=== PATIENT | female | born 1935 | race Caucasian/White ===

== ENCOUNTER → 2016-10-19 | Outpatient (CLI) | payer OTHER, MEDICARE | LOC: FIMAGING 10:28 | PROVIDERS: ATTEND Internal Medicine Infectious Disease | DX: A31.0 Pulmonary mycobacterial infection (principal) ==

== ENCOUNTER → 2016-11-12 | Outpatient (CLI) | payer OTHER, MEDICARE | LOC: BRMIMAGING 13:38 | PROVIDERS: ATTEND Internal Medicine | DX: Z13.820 Encounter for screening for osteoporosis (principal); M81.0 Age-related osteoporosis without current pathological fracture; M54.5 Low back pain; Z78.0 Asymptomatic menopausal state; Z82.62 Family history of osteoporosis ==

== ENCOUNTER 2016-12-01 09:54 | Day surgery (SDC) | payer OTHER, MEDICARE ==
[2016-12-01] MEDS ORDERED: NS 500 ML IV SCH (10:45)
[2016-12-01] MEDS ORDERED: LIDOCAINE 2% JELLY 5 ML TUBE ONE (11:04)
[2016-12-01] MEDS ORDERED: fentaNYL 100 MCG/2 ML INJ ONE (11:05)
[2016-12-01] MEDS ORDERED: MIDAZOLAM 2 MG/2 ML VIAL ONE ×2 (11:05)
[2016-12-01] MEDS ORDERED: LIDOCAINE 1% 30 ML SDV ONE (11:05)
[2016-12-01] MEDS ORDERED: ALBUTEROL 3 ML DEYVIAL ONE (11:08)
[2016-12-01] MEDS ORDERED: LIDOCAINE HCL 4% TOPICAL SOLN 50ML ONE (11:14)
--- NOTE | 2016-12-01 16:52 | GPN ---
[f rep st] PROCEDURE NOTE DATE OF PROCEDURE: 12/01/2016 PROCEDURE: Flexible fiberoptic bronchoscopy. 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 PROCEDURE NOTE: The risks and benefits of the procedure were explained to the patient, who agreed t o proceed. The entire procedure was performed in a negative pressure room with the patient under bl ood pressure, EKG, and oximetry monitoring. It was my assessment that there was no significant risk of airborne infection from this procedure. The patient's oropharynx was anesthetized with topical Hurricaine spray, and a bite block was then placed between her teeth. The bronchoscope was advanced through the bite block into the vocal cords, which moved normally. 1% lidocaine was used topically on the airways for anesthesia. The bronchoscope was advanced through the vocal cords into the main trachea, which was somewhat tortuous, but otherwise normal in appearance. I proceeded directly to the right upper lobe, where a wedge position was obtained; was obtained in the anterior segment. La vage with approximately 80 cc of saline was performed, with return of cloudy fluid. The trap was re moved from the bronchoscope, and the specimen was sent for cultures and stains. The bronchoscope wa s then removed from the wedge position, and I examined all the airways bilaterally. I suctioned lisseth e thick, mucopurulent secretions, primarily from the right and left lower lobe, with a small-moderat e volume. All airways were clear of secretions at the end of the procedure. There were no endobron chial lesions. The patient received 2 mg of Versed and 100 mcg of fentanyl intravenously for analge chapo and sedation. There were no complications apparent at the end of the procedure. /[id number]/MODL
== END 2016-12-01 13:42 | disposition home or self-care (01) ==
LOC: FSGY 09:54
PROVIDERS: ATTEND Internal Medicine Critical Care Medicine
DX: J47.9 Bronchiectasis, uncomplicated (principal)
CPT/HCPCS: J0171; J2250; J3010

== ENCOUNTER 2016-12-01 19:03 | Emergency (ER) | payer OTHER, MEDICARE ==
--- NOTE | 2016-12-01 19:13 | EDPHY ---
H & P Time Seen by Provider: 12/01/16 19:13 HPI/ROS: CHIEF COMPLAINT: Coughing and worsening shortness of breath HISTORY OF PRESENT ILLNESS: This 81-year-old woman is being treated for a non tuberculosis mycobacterial infection with azithromycin and ethambutol and rifampin. She was feeling worse over the past week and so her online tutor Dr. Harman Gong did a bronchoscopy today at around 11:00 a.m.. She was sent home around 2:30 p.m.. Since she got home she has been coughing and feeling worse and having difficulty breathing and unable to get comfortable. Not associated with fever or chills or sputum production or chest pain. Symptoms severe at home, and brought in by ambulance. Now mild. REVIEW OF SYSTEMS: Eye: no change in vision ENT: no sore throat, hard of hearing at baseline with cochlear implants Cardiac: no chest pain or syncope Pulmonary: HPI Abdomen: no vomiting, diarrhea, abdominal pain Musculoskeletal: no back pain Skin: no rash Neuro: no headache Constitutional: no fever : no urinary symptoms A comprehensive 10 point review of systems is otherwise negative aside from elements mentioned in the history of present illness. PAST MEDICAL HISTORY: Cochlear implants, glaucoma, bronchiectasis with non tuberculosis mycobacterial infection. Social history: Nonsmoker, lives alone General Appearance: Alert and conversant, cooperative. Eyes: No scleral icterus. ENT, Mouth: Normal mucous membranes. Respiratory: Bilateral rhonchi but speaks in full sentences. Respiratory rate around mid 20s on my exam. Cardiovascular: Regular rate and rhythm. Gastrointestinal: Abdomen is soft and non tender. Neurological: Alert and oriented x3. Normally conversant. Face symmetric, normal movement and sensation in all extremities. Skin: Warm and dry, no rashes. Musculoskeletal: No peripheral edema and no joint swelling. Psychiatric: Not agitated. Emergency Department course/MDM: Discussed case in detail with Beltran at 1929. He recommends that if her saturation is at baseline that she can be treated with bronchodilators and antitussives and discharged as long as the patient is comfortable with that. X-ray reviewed with radiologist maybe a little bit worse in the right upper lung. No pneumothorax or pleural effusion. Patient received albuterol nebulizer and cough medication. She feels better. She feels safe and able to go home at this time. Think that is reasonable as this is the recommendation of her online tutor who knows her well and saw her earlier today. Smoking Status: Never smoked Constitutional: Initial Vital Signs Temperature (C) 36.4 C 12/01/16 19:15 Heart Rate 81 12/01/16 19:15 Respiratory Rate 32 H 12/01/16 19:15 Blood Pressure 154/81 H 12/01/16 19:15 O2 Sat (%) 96 12/01/16 19:15 O2 Delivery Mode Nasal Cannula O2 (L/minute) 3 Allergies/Adverse Reactions: No Known Allergies Allergy (Verified 12/01/16 19:44) Home Medications: Medication Instructions Recorded ASPIRIN 11/23/16 AZITHROMYCIN 11/23/16 CALCIUM 11/23/16 Ethambutol HCl 11/23/16 IRON 11/23/16 MAGNESIUM 11/23/16 Potassium 11/23/16 Rifampin 11/23/16 Timolol 11/23/16 buPROPion SR 11/23/16 Medical Decision Making Differential Diagnosis: Differential considered including but not limited to bronchiectasis, bronchospasm, pneumothorax, pulmonary embolism, aspiration. Consult/Admit Bed Type: [place] [id number] for Minor - Data Points Laboratory Results: Laboratory Results 12/01/16 19:10 12/01/16 19:10 12/01/16 12/01/16 19:10 19:10 WBC 15.71 10^3/uL H 10^3/uL (3.80-9.50) RBC 4.47 10^6/uL 10^6/uL (4.18-5.33) Hgb 14.3 g/dL g/dL (12.6-16.3) Hct 41.4 % % (38.0-47.0) MCV 92.6 fL fL (81.5-99.8) MCH 32.0 pg pg (27.9-34.1) MCHC 34.5 g/dL g/dL (32.4-36.7) RDW 14.0 % % (11.5-15.2) Plt Count 224 10^3/uL 10^3/uL (150-400) MPV 11.3 fL fL (8.7-11.7) Neut % (Auto) 89.3 % H % (39.3-74.2) Lymph % (Auto) 4.6 % L % (15.0-45.0) Sequoyah % (Auto) 4.6 % % (4.5-13.0) Eos % (Auto) 0.7 % % (0.6-7.6) Baso % (Auto) 0.4 % % (0.3-1.7) Nucleat RBC Rel Count 0.0 % % (0.0-0.2) Absolute Neuts (auto) 14.02 10^3/uL H 10^3/uL (1.70-6.50) Absolute Lymphs (auto) 0.72 10^3/uL L 10^3/uL (1.00-3.00) Absolute Monos (auto) 0.73 10^3/uL 10^3/uL (0.30-0.80) Absolute Eos (auto) 0.11 10^3/uL 10^3/uL (0.03-0.40) Absolute Basos (auto) 0.06 10^3/uL 10^3/uL (0.02-0.10) Absolute Nucleated RBC 0.00 10^3/uL 10^3/uL (0-0.01) Immature Gran % 0.4 % % (0.0-1.1) Immature Gran # 0.07 10^3/uL 10^3/uL (0.00-0.10) Sodium 137 mEq/L mEq/L (134-144) Potassium 3.8 mEq/L mEq/L (3.5-5.2) Chloride 100 mEq/L mEq/L (97-110) Carbon Dioxide 26 mEq/l mEq/l (22-31) Anion Gap 11 mEq/L mEq/L (8-16) BUN 13 mg/dL mg/dL (7-23) Creatinine 0.7 mg/dL mg/dL (0.6-1.0) Estimated GFR > 60 Glucose 136 mg/dL H mg/dL (70-100) Calcium 9.1 mg/dL mg/dL (8.5-10.4) Medications Given: Discontinued Medications Albuterol/Ipratropium (Duoneb) 3 ml IH EDNOW ONE Stop: 12/01/16 19:29 Last Admin: 12/01/16 20:02 Dose: 3 ml Departure - Departure Disposition: Home, Routine, Self-Care Clinical Impression: Bronchiectasis Qualifiers: Bronchiectasis type: uncomplicated Qualified Code(s): J47.9 - Bronchiectasis, uncomplicated Condition: Good Instructions: Bronchiectasis (ED) Referrals: Patient,NotPresent [Unknown] - As per Instructions Harman Gong MD [Medical Doctor] - As per Instructions
[2016-12-01] MEDS ORDERED: IPRATROPIUM/ALBUTEROL 3 ML DEYVIAL IH ONE (19:28)
[2016-12-01 19:39] LABS: % IMMATURE GRANULYOCYTES 0.4 % (0.0-1.1); ABSOLUTE IMMATURE GRANULOCYTES 0.07 10^3/uL (0.00-0.10); ADD DIFF? NO; ADD MORPH? NO; ADD SCAN? NO; ATYPICAL LYMPHOCYTE FLAG 0 (0-99); FRAGMENT RBC FLAG 0 (0-99); HEMATOCRIT 41.4 % (38.0-47.0); HEMOGLOBIN 14.3 g/dL (12.6-16.3); LEFT SHIFT FLG 0 (0-99); LIPEMIA HEMOLYSIS FLAG 90 (0-99); MEAN CELL HEMOGLOBIN CONCENTR. 34.5 g/dL (32.4-36.7); MEAN CELL VOLUME 92.6 fL (81.5-99.8); MEAN PLATELET VOLUME 11.3 fL (8.7-11.7); PLATELET CLUMPS FLAG 0 (0-99); PLATELET COUNT 224 10^3/uL (150-400); RED BLOOD CELL COUNT 4.47 10^6/uL (4.18-5.33)
[2016-12-01 19:45] LABS: ANION GAP 11 mEq/L (8-16); CALCIUM 9.1 mg/dL (8.5-10.4); CARBON DIOXIDE 26 mEq/l (22-31); CHLORIDE 100 mEq/L (97-110); CREATININE 0.7 mg/dL (0.6-1.0); GLOMERULAR FILTRATION RATE > 60; GLUCOSE 136 mg/dL (70-100); POTASSIUM 3.8 mEq/L (3.5-5.2); SODIUM 137 mEq/L (134-144)
[2016-12-01 21:13] VITALS: BP 140/83; PULSE 86; RESP 16; TEMP 97.7; O2SAT 95
== END 2016-12-01 22:40 | disposition home or self-care (01) ==
LOC: EDUNIT# → EDBD
DX: J47.9 Bronchiectasis, uncomplicated (principal)

== ENCOUNTER 2016-12-03 17:04 | Inpatient (IN) | payer OTHER, MEDICARE ==
[2016-12-03] MEDS ORDERED: CEFEPIME HCL 2 GM in D5W 100 ML IV ONE (17:19)
--- NOTE | 2016-12-03 17:20 | EDPHY ---
H & P Stated Complaint: sent for admission/has pseudomonas/needs abx Time Seen by Provider: 12/03/16 17:12 HPI/ROS: CHIEF COMPLAINT: Pneumonia HISTORY OF PRESENT ILLNESS: The patient is an 81-year-old female sent in by the Infectious Disease service Dr. Kaufman. 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 Over the last week she has had increased cough with shortness of breath. She had a bronchoscopy 2 days ago by her sales agent Dr. Gong. She was started on some type of cephalosporin but cultures returned today positive for Pseudomonas. Dr. Kaufman instructed her to come here to be admitted and called me and requested we start her on cefepime 2 g q.12 hours. Patient is tachypneic but not febrile. She was seen here in the emergency department 2 days ago after bronchoscopy and felt better with bronchodilators. Dr. Gong was consulted and the patient was discharged home. REVIEW OF SYSTEMS: Constitutional: denies: chills, fever, recent illness, recent injury EENTM: denies: blurred vision, double vision, nose congestion Respiratory: See HPI Cardiac: denies: chest pain, irregular heart rate, lightheadedness, palpitations Gastrointestinal/Abdominal: denies: abdominal pain, diarrhea, nausea, vomiting, blood streaked stools Genitourinary: denies: dysuria, frequency, hematuria, pain Musculoskeletal: denies: joint pain, muscle pain Skin: denies: lesions, rash, jaundice, bruising Neurological: denies: headache, numbness, paresthesia, tingling, dizziness, weakness Hematologic/Lymphatic: denies: blood clots, easy bleeding, easy bruising Immunologic/allergic: denies: HIV/AIDS, transplant EXAM: GENERAL: Well-appearing, well-nourished and in no acute distress. HEAD: Atraumatic, normocephalic. EYES: Pupils equal round and reactive to light, extraocular movements intact, sclera anicteric, conjunctiva are normal. ENT: TMs normal, nares patent, oropharynx clear without exudates. Moist mucous membranes. NECK: Normal range of motion, supple without lymphadenopathy or JVD. LUNGS: Coarse breath sounds bilaterally HEART: Regular rate and rhythm without murmurs, rubs or gallops. ABDOMEN: Soft, nontender, normoactive bowel sounds. No guarding, no rebound. No masses appreciated. BACK: No CVA tenderness, no spinal tenderness, step-offs or deformities EXTREMITIES: Normal range of motion, no pitting or edema. No clubbing or cyanosis. NEUROLOGICAL: Cranial nerves II through XII grossly intact. Normal speech, normal gait. 5/5 strength, normal movement in all extremities, normal sensation PSYCH: Normal mood, normal affect. SKIN: Warm, dry, normal turgor, no visible rashes or lesions. Source: Patient Exam Limitations: No limitations - Personal History Current Tetanus/Diphtheria Vaccine: Yes Tetanus Vaccine Date: 2006 - Medical/Surgical History Hx Asthma: No Hx Chronic Respiratory Disease: Yes Hx Diabetes: No Hx Cardiac Disease: No Hx Renal Disease: No Hx Cirrhosis: No Hx Alcoholism: No Hx HIV/AIDS: No Hx Splenectomy or Spleen Trauma: No Other PMH: cochlear implants, glaucoma, IBS, non-TB mycobacterium intracellular pneumonia - Family History Significant Family History: No pertinent family hx - Social History Smoking Status: Never smoked Alcohol Use: None Drug Use: None Constitutional: Initial Vital Signs Temperature (C) 36.4 C 12/03/16 17:08 Heart Rate 90 12/03/16 17:08 Respiratory Rate 27 H 12/03/16 17:08 Blood Pressure 117/85 H 12/03/16 17:08 O2 Sat (%) 92 12/03/16 17:08 O2 Delivery Mode Room Air Allergies/Adverse Reactions: No Known Allergies Allergy (Verified 12/03/16 17:06) Home Medications: Medication Instructions Recorded Aspirin [Aspirin 81mg (*)] 81 mg PO DAILY 12/03/16 Azithromycin [Azithromycin] 250 mg PO DAILY 12/03/16 Bupropion HCl [Bupropion HCl Sr] 200 mg PO DAILY 12/03/16 Calcium [HI-ADDIE] 1,000 mg PO DAILY 12/03/16 Cholecalciferol Vit D3 [Vitamin D3 1,000 units PO DAILY 12/03/16 (*)] Ethambutol HCl [Myambutol 400 MG 800 mg PO DAILY 12/03/16 (*)] Herbals/Supplements -Info Only 1 ea PO DAILY 12/03/16 Magnesium Oxide [Magnesium Oxide 800 mg PO DAILY 12/03/16 400 mg (*)] PREDNISONE [PREDNISONE] 20 mg PO DAILY 12/03/16 RIFAMPIN [RIFAMPIN] 600 mg PO HS 12/03/16 Timolol 0.25% [TIMOPTIC 0.25% (*)] 1 drops EACHEYE BID 12/03/16 Valacyclovir HCl [Valacyclovir] 500 mg PO BID PRN 12/03/16 Vitamin B Complex [Super B-50 1 each PO DAILY 12/03/16 Complex] Medical Decision Making - Diagnostics Imaging: X-ray: chest x-ray was obtained. I viewed the images myself on the PACS system. My interpretation of the images is: Similar to yesterday with diffuse airspace disease. The radiologist interpretation is pending. ED Course/Re-evaluation: 5:30 p.m. I discussed the case with Dr. Angeles Guaman who will admit to the medical service. Sepsis labs pending. Patient does meet criteria for sepsis but not severe sepsis. She has been treated appropriate antibiotics. Differential Diagnosis: Partial list of the Differential diagnosis considered include but were not limited to; pneumonia, sepsis chronic lung disease, pulmonary hypertension and although unlikely based on the history and physical exam, I also considered endocarditis, severe sepsis. Critical Care Time: Critical care time spent by me, Dr. Lewis exclusive with this patient was 35 minutes, exclusive of the PA time exclusive of procedures. The organ system that was at risk was pulmonary and I gave antibiotics to prevent worsening of the patient's condition - Data Points Medications Given: Discontinued Medications Cefepime HCl 2 gm/ Dextrose 100 mls @ 200 mls/hr IV EDNOW ONE PRN Reason: Protocol Stop: 12/03/16 17:48 Last Admin: 12/03/16 18:01 Dose: 100 mls Departure - Departure Disposition: [facility] Inpatient Acute Clinical Impression: Pneumonia Qualifiers: Pneumonia type: due to Pseudomonas Laterality: unspecified laterality Lung location: unspecified part of lung Qualified Code(s): J15.1 - Pneumonia due to Pseudomonas Sepsis Qualifiers: Sepsis type: Pseudomonas Qualified Code(s): A41.52 - Sepsis due to Pseudomonas Condition: Fair
[2016-12-03 17:58] LABS: INR 1.04 (0.83-1.16); PROTIME(PATIENT) 13.5 SEC (12.0-15.0)
[2016-12-03 17:59] LABS: APTT 25.5 SEC (23.0-38.0)
[2016-12-03 18:12] LABS: % IMMATURE GRANULYOCYTES 0.5 % (0.0-1.1); ABSOLUTE IMMATURE GRANULOCYTES 0.06 10^3/uL (0.00-0.10); ADD DIFF? NO; ADD MORPH? NO; ADD SCAN? NO; ATYPICAL LYMPHOCYTE FLAG 10 (0-99); FRAGMENT RBC FLAG 0 (0-99); HEMATOCRIT 37.5 % (38.0-47.0); LEFT SHIFT FLG 0 (0-99); LIPEMIA HEMOLYSIS FLAG 90 (0-99); MEAN CELL HEMOGLOBIN 32.1 pg (27.9-34.1); MEAN CELL HEMOGLOBIN CONCENTR. 34.7 g/dL (32.4-36.7); MEAN CELL VOLUME 92.6 fL (81.5-99.8); MEAN PLATELET VOLUME 11.3 fL (8.7-11.7); PLATELET CLUMPS FLAG 10 (0-99); PLATELET COUNT 223 10^3/uL (150-400); RED BLOOD CELL COUNT 4.05 10^6/uL (4.18-5.33); RED CELL DISTRIBUTION WIDTH 13.8 % (11.5-15.2)
[2016-12-03 18:25] LABS: ANION GAP 8 mEq/L (8-16); BILIRUBIN,TOTAL 0.9 mg/dL (0.1-1.4); CALCIUM 8.8 mg/dL (8.5-10.4); CARBON DIOXIDE 26 mEq/l (22-31); CHLORIDE 100 mEq/L (97-110); CREATININE 0.7 mg/dL (0.6-1.0); GLOMERULAR FILTRATION RATE > 60; GLUCOSE 105 mg/dL (70-100); POTASSIUM 3.9 mEq/L (3.5-5.2); SODIUM 134 mEq/L (134-144)
[2016-12-03] MEDS ORDERED: ONDANSETRON 4 MG/2 ML VIAL IVP PRN (19:11)
[2016-12-03] MEDS ORDERED: ALBUTEROL 3 ML DEYVIAL IH PRN (19:11)
[2016-12-03] MEDS ORDERED: ONDANSETRON DISINTEGRATING 4 MG TAB PO PRN (19:11)
[2016-12-03] MEDS ORDERED: ACETAMINOPHEN 325 MG TAB PO PRN (19:11)
[2016-12-03] MEDS ORDERED: valACYclovir 500 MG TAB PO PRN (19:14)
[2016-12-03] MEDS ORDERED: MAGNESIUM OXIDE 400 MG TAB PO SCH (19:29)
[2016-12-03] MEDS ORDERED: LACTULOSE 20 GM/30 ML UDCUP PO PRN (19:32)
[2016-12-03] MEDS ORDERED: MAGNESIUM HYDROXIDE 30 ML UDCUP PO PRN (19:32)
[2016-12-03] MEDS ORDERED: POLYETHYLENE GLYCOL 3350 17 GM PKT PO PRN (19:32)
[2016-12-03] MEDS ORDERED: BISACODYL 10 MG SUPP PR PRN (19:32)
[2016-12-03] MEDS: IPRATROPIUM/ALBUTEROL 3 ML DEYVIAL IH SCH (20:15)
[2016-12-03] MEDS: ERYTHROMYCIN 0.5% 1 GM OPHT.OINT RTEYE SCH (20:28)
[2016-12-03] MEDS: RIFAMPIN 300 MG CAP PO SCH (20:30)
[2016-12-03] MEDS: SENNOSIDES/DOCUSATE SODIUM TAB PO SCH (20:31)
[2016-12-03] MEDS: ETHAMBUTOL HCL 400 MG TAB PO SCH (20:31)
[2016-12-03] MEDS ORDERED: CEPACOL LOZENGE PO PRN (20:44)
[2016-12-03] MEDS ORDERED: TIMOLOL 0.25% 5 ML OPHT.BTL EACHEYE SCH (21:00)
--- NOTE | 2016-12-03 21:22 | GHP ---
[f rep st] HISTORY AND PHYSICAL DATE OF ADMISSION: 12/03/2016 CHIEF COMPLAINT: Cough and shortness of breath. HISTORY OF PRESENT ILLNESS: This patient is an 81-year-old female with a history of Mycobacterium lung infection, glaucoma, and cochlear implants, who presents to the emergency department at the direction of in her infectious disease specialist due to Pseudomonas in a recent sputum culture in the setting of worsening cough and shortness of breath. She is followed by Dr. Gong, pulmonology, who performed a bronchoscopy 2 days ago due to her worsening symptoms over the past 6 weeks. She has previously been treated by Infectious Disease for her mycobacterium infection with azithromycin, rifampin, and ethambutol. Her cough is wet and productive, and she is more short of breath than usual. A bronchial washing culture from her bronchoscopy on December 01 grew Pseudomonas, and she was directed to the emergency department for admission for further treatment. At this time, the patient denies chest pain, abdominal pain , nausea, or vomiting. She reports a history of constipation in the setting of irritable bowel syndrome and feels her magnesium supplements help treat this. She is currently afebrile and appears comfortable. She is admitted to the hospital for further management. PAST MEDICAL AND SURGICAL HISTORY: 1. History of Mycobacterium avium complex. 2. Bronchiectasis, followed by Dr. Lawrence Gong. 3. Bilateral cochlear implants. 4. Irritable bowel syndrome. 5. Glaucoma. MEDICATIONS: Please see [facility] for complete updated outpatient medication list. ALLERGIES: No known drug allergies. FAMILY HISTORY: Reviewed and noncontributory. SOCIAL HISTORY: The patient lives independently. She is a nonsmoker. She denies alcohol use. REVIEW OF SYSTEMS: A 10-point review of systems is performed is negative, except as per HPI. OBJECTIVE: VITAL SIGNS: Temperature is 36.4, blood pressure 117/85, heart rate 90, respiratory rate ranged from 16 to 28, she is currently 93% on 2 L of oxygen by nasal cannula. GENERAL: The patient is awake, alert, oriented, in no acute distress. HEENT: She has bilateral cochlear implants. Head is otherwise atraumatic and normocephalic. Pupils equal, round, and reactive to light. Extraocular muscles are intact. Oropharynx is clear. Mucous membranes are moist. NECK: Supple. There is no JVD. HEART: Regular rate and rhythm. LUNGS: Relatively clear to auscultation bilaterally. ABDOMEN: Soft, nondistended, nontender. Normoactive bowel sounds. EXTREMITIES: Without cyanosis, clubbing, or edema. Warm and well perfused. NEUROLOGIC: Grossly nonfocal. LABORATORY DATA: CBC reveals a white blood cell count of 12.9, down from 15.7 two days ago. She has 78% neutrophils. INR is 1. Lactic acid is normal at 0.8. Basic metabolic panel reveals normal electrolytes, normal kidney function with a creatinine of 0.7, blood sugar is 105. Chest x-ray shows diffuse bilateral interstitial disease without new focal consolidation, pleural effusion or evidence of heart failure. Chest x-ray is personally reviewed by myself and is relatively unchanged compared to prior film 2 days ago, which showed diffuse reticular nodular opacities with possible slight progression in the right upper lobe. ASSESSMENT AND PLAN: This patient is an 81-year-old female with a history of bronchiectasis who has recently been treated for Mycobacterium avium complex infection and presents to the hospital 2 days after bronchoscopy with a positive culture for Pseudomonas and worsening symptoms, including productive cough and shortness of breath. 1. Acute hypoxemic respiratory failure in the setting of bronchiectasis, Mycobacterium avium complex, and a culture positive for Pseudomonas. She is afebrile on presentation, but based on her tachypnea and leukocytosis, she meets criteria for sepsis. She does not have severe sepsis, however, without hypotension and a normal lactate. I discussed the case with Infectious Disease. The patient will be admitted and treated with IV cefepime. She will be continued on her azithromycin, rifampin, and ethambutol. I am going to repeat a noncontrast chest CT, given the possible slight progression in the right upper lobe of her chest film compared to October 2016 at the time of her last CT. She will receive supplemental oxygen and nebulizers. I do not hear any significant wheezing and will defer steroids for the time being. Infectious Disease consult is requested. Would also consider Pulmonary consult tomorrow. 2. Irritable bowel syndrome, constipation predominant. The patient will be continued on her outpatient medications and will add a bowel protocol. 3. Deep venous thrombosis prophylaxis, Lovenox. DISPOSITION: The patient will be admitted to inpatient status, as she will likely require greater than 48 hours' hospitalization for ongoing management of her [id number] pulmonary infectious process. She currently lives at [facility], and the plan will be to discharge her to SNF at [facility]. Apparently they have a bed available for her on Tuesday. Case Management consult is requested to assist with discharge planning. /[id number]/MODL MTDD
[2016-12-04] MEDS: ERYTHROMYCIN 0.5% 1 GM OPHT.OINT RTEYE SCH ×4 (02:34→17:41)
[2016-12-04] MEDS: IPRATROPIUM/ALBUTEROL 3 ML DEYVIAL IH SCH ×4 (05:04→19:46)
[2016-12-04 05:13] LABS: % IMMATURE GRANULYOCYTES 0.6 % (0.0-1.1); ABSOLUTE IMMATURE GRANULOCYTES 0.06 10^3/uL (0.00-0.10); ADD DIFF? NO; ADD MORPH? NO; ADD SCAN? NO; ATYPICAL LYMPHOCYTE FLAG 10 (0-99); FRAGMENT RBC FLAG 0 (0-99); HEMATOCRIT 35.4 % (38.0-47.0); HEMOGLOBIN 12.5 g/dL (12.6-16.3); LEFT SHIFT FLG 0 (0-99); LIPEMIA HEMOLYSIS FLAG 90 (0-99); MEAN CELL HEMOGLOBIN 32.8 pg (27.9-34.1); MEAN CELL HEMOGLOBIN CONCENTR. 35.3 g/dL (32.4-36.7); MEAN CELL VOLUME 92.9 fL (81.5-99.8); MEAN PLATELET VOLUME 11.2 fL (8.7-11.7); PLATELET CLUMPS FLAG 0 (0-99); PLATELET COUNT 204 10^3/uL (150-400); RED BLOOD CELL COUNT 3.81 10^6/uL (4.18-5.33); RED CELL DISTRIBUTION WIDTH 13.6 % (11.5-15.2)
[2016-12-04] MEDS: CEFEPIME HCL 2 GM in D5W 100 ML IV SCH ×2 (06:09→17:31)
[2016-12-04] MEDS: TIMOLOL 0.25% 5 ML OPHT.BTL EACHEYE SCH ×2 (06:18→19:35)
[2016-12-04 06:25] LABS: COLOR AMBER; LEUKOCYTE ESTERASE,URINE NEGATIVE (NEGATIVE); NITRITE,URINE NEGATIVE (NEGATIVE)
[2016-12-04] MEDS: ENOXAPARIN 40 MG/0.4 ML SYR SC SCH (08:05)
[2016-12-04] MEDS: AZITHROMYCIN 250 MG TAB PO SCH (08:14)
[2016-12-04] MEDS: CHOLECALCIFEROL VIT D3 1,000 UNITS TAB PO SCH (08:15)
[2016-12-04] MEDS: ASPIRIN 81 MG CHEWABLE TAB PO SCH (08:15)
[2016-12-04] MEDS: ETHAMBUTOL HCL 400 MG TAB PO SCH (08:16)
[2016-12-04] MEDS: CALCIUM CARBONATE 500 MG TAB PO SCH (08:20)
[2016-12-04] MEDS: SENNOSIDES/DOCUSATE SODIUM TAB PO SCH ×2 (08:20→19:38)
[2016-12-04] MEDS ORDERED: MAGNESIUM OXIDE 400 MG TAB PO SCH (09:00)
[2016-12-04] MEDS ORDERED: buPROPion SR 100 MG TAB PO SCH (09:00)
[2016-12-04] MEDS ORDERED: ETHAMBUTOL HCL 400 MG TAB PO SCH (09:00)
[2016-12-04] MEDS ORDERED: NON-FORMULARY NEW DRUG (Calcium [Hi-Cal] 1,000 MG) PO SCH (09:00)
--- NOTE | 2016-12-04 13:12 | PCMIDPN ---
Assessment/Plan: Assessment/Plan: * Pneumonia: CT of chest shows new infiltrates when compared to her CT in October. Suggest new foci of pneumonia and time course less suggestive of progressive MAC given only 2 month interval. BAL cultures have shown Pseudomonas which may be etiology for pneumonia. Will continue therapy with cefepime 2 g IV q.12 hours which is favored over fluoroquinolone given potential interaction with MAC therapy. Plan PICC line on Tuesday and completion of therapy at [facility] once bed available. 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 Continue azithromycin, ethambutol, and rifampin. 12/04/16 13:09 Subjective: Patient admitted to hospital yesterday after BAL cultures noted to have Pseudomonas with plans for initiation of IV cefepime. Patient notes increasing cough and shortness of breath over several weeks. Cough is productive in nature. No associated chest pain. Ongoing treatment for pulmonary MAC with azithromycin, ethambutol, and rifampin under the supervision of Dr. Kaufman and Dr. Gong. Objective: Vital Signs Temp Pulse Resp BP Pulse Ox 37.1 C 71 20 99/62 L 93 12/04/16 12:51 12/04/16 12:51 12/04/16 12:02 12/04/16 12:51 12/04/16 12:51 Laboratory Results 12/04/16 05:01 12/03/16 17:40 12/03/16 12/04/16 12/05/16 05:59 05:59 05:59 Intake Total 300 Output Total 500 Balance -200 Azithromycin/ethambutol/rifampin Cefepime # 1 BAL with growth of Pseudomonas CT which was reviewed and interpreted by me with Radiology today showing changes of chronic pulmonary MAC as well as new infiltrates in the right upper and right lower lobes - Physical Exam General Appearance: alert, no apparent distress, thin EENT: pharynx normal, No scleral icterus Respiratory: crackles (Right base) Cardiac/Chest: regular rate, rhythm, No systolic murmur Extremities: No inflammation Abdomen: non-tender, No distended ICD10 Worksheet Patient Problems: Problems Problem Status Onset Pneumonia Acute Sepsis Acute
--- NOTE | 2016-12-04 13:36 | HOSPPROG ---
Hospitalist Progress Note Assessment/Plan: The patient is a 81-year-old female with PMH MAC, IBS who was admitted for Pseudomonas found in sputum culture as well as worsening cough/shortness of breath. ASSESSMENT/PLAN: Acute hypoxemic respiratory failure Pseudomonas pneumonia, possibly hospital acquired Bronchiectasis MAC Sepsis -IV cefepime -Azithro, ethambutol, rifampin for MAC -ID consulted-Dr. Henriquez -O2/SVNs -Flutter valve IBS-C -Cont outpt meds -Bowel protocol VTE prophylaxis: Lovenox Disposition: MedSurg, possible DC to nursing facility on or Tue ____ SUBJECTIVE: The patient feels okay. She feels she is breathing a little better. She is very disheartened that she continues to have lung issues. She has been trying to get in to see a ludlow machine operator at [facility]. OBJECTIVE: Physical Exam: General: The patient is a thin, elderly who is alert and in no acute distress. HEENT: normocephalic, extraocular movements intact, conjunctivae clear. Mucous membranes moist. Neck: trachea midline, no visible masses. Abd: soft and nondistended. Bowel sounds present. Non tender throughout. Musculoskeletal: Normal muscle tone/bulk. Neuro: cranial nerves II XII grossly intact. Intact gross motor and sensory function. Psych: Appropriate mood and appropriate affect. Skin: Mild pallor. No petechiae. Heme/lymph: No peripheral edema at bilateral lower extremities. Labs/Imaging/Other Tests: Personally reviewed/interpreted. Objective: Vital Signs Temp Pulse Resp BP Pulse Ox 37.1 C 71 20 99/62 L 93 12/04/16 12:51 12/04/16 12:51 12/04/16 12:02 12/04/16 12:51 12/04/16 12:51 Laboratory Results 12/04/16 05:01 12/03/16 17:40 12/03/16 12/04/16 12/05/16 05:59 05:59 05:59 Intake Total 300 Output Total 500 Balance -200 PT 13.5 SEC (12.0-15.0) 12/03/16 17:35 INR 1.04 (0.83-1.16) 12/03/16 17:35 ICD10 Worksheet Patient Problems: Problems Problem Status Onset Pneumonia Acute Sepsis Acute
[2016-12-04] MEDS: RIFAMPIN 300 MG CAP PO SCH (19:36)
[2016-12-05] MEDS: ERYTHROMYCIN 0.5% 1 GM OPHT.OINT RTEYE SCH ×4 (01:36→17:54)
[2016-12-05] MEDS: CEFEPIME HCL 2 GM in D5W 100 ML IV SCH ×2 (05:32→17:54)
[2016-12-05] MEDS: IPRATROPIUM/ALBUTEROL 3 ML DEYVIAL IH SCH ×4 (05:41→20:20)
[2016-12-05] MEDS: TIMOLOL 0.25% 5 ML OPHT.BTL EACHEYE SCH ×2 (08:11→20:03)
[2016-12-05] MEDS: AZITHROMYCIN 250 MG TAB PO SCH (08:14)
[2016-12-05] MEDS: CALCIUM CARBONATE 500 MG TAB PO SCH (08:14)
[2016-12-05] MEDS: ASPIRIN 81 MG CHEWABLE TAB PO SCH (08:14)
[2016-12-05] MEDS: ETHAMBUTOL HCL 400 MG TAB PO SCH (08:15)
[2016-12-05] MEDS: CHOLECALCIFEROL VIT D3 1,000 UNITS TAB PO SCH (08:15)
[2016-12-05] MEDS: SENNOSIDES/DOCUSATE SODIUM TAB PO SCH ×2 (08:16→20:02)
[2016-12-05] MEDS: MAGNESIUM OXIDE 400 MG TAB PO SCH (11:12)
[2016-12-05] MEDS: buPROPion SR 100 MG TAB PO SCH (11:12)
[2016-12-05] MEDS: ENOXAPARIN 40 MG/0.4 ML SYR SC SCH (11:14)
--- NOTE | 2016-12-05 15:09 | PDINTPN ---
Char Filter Operator Progress Note Assessment/Plan: Assessment: Bronchiectasis: Now with PsA on bronch wash. Had acute symptomts of bronchitis/ pneumonia after BAL, which is unusual. Infiltrates on CT likely a result of bronchoscopy, either residual fluid from lavage or pneumonitis from releasing organisms at the time of the wash. MAC: Cultures pending. Plan: Starting Cefepime. Bronchodilators. 12/05/16 15:13 Subjective: Cough that was worse for the pat few days is better today. Dyspnea near baseline. No more fevers. Objective: Vital Signs Temp Pulse Resp BP Pulse Ox 36.3 C 69 18 115/68 95 12/05/16 11:45 12/05/16 11:45 12/05/16 11:45 12/05/16 11:45 12/05/16 11:45 Laboratory Results 12/04/16 05:01 12/03/16 17:40 12/04/16 12/05/16 12/06/16 05:59 05:59 05:59 Intake Total 300 Output Total 500 Balance -200 PT 13.5 SEC (12.0-15.0) 12/03/16 17:35 INR 1.04 (0.83-1.16) 12/03/16 17:35 Bronch wash 12/01: PsA, gómez-sensitive. AFB stain negative. CT 12/04: New areas of ground-glass infiltrate RUL posterior segment and RLL superior segment. Images reviewed. Physical Exam - Physical Exam General Appearance: alert, no apparent distress EENT: normal ENT inspection Neck: normal inspection Respiratory: crackles Cardiac/Chest: regular rate, rhythm, No edema Abdomen: normal bowel sounds, non-tender, soft Skin: normal color, warm/dry Extremities: normal inspection Neuro/Psych: alert, normal mood/affect, oriented x 3 ICD10 Worksheet Patient Problems: Problems Problem Status Onset Pneumonia Acute Sepsis Acute
[2016-12-05] MEDS ORDERED: ALTEPLASE 2 MG VIAL IVP PRN (16:53)
--- NOTE | 2016-12-05 16:53 | PCMIDPN ---
Assessment/Plan: Assessment/Plan: * Pneumonia: CT of chest shows new infiltrates when compared to her CT in October - reviewed with Dr. Gong with consideration that some infiltrate may be associated with recent BAL. Underlying contribution from pneumonia remains a possibility. Will continue therapy with cefepime 2 g IV q.12 hours which is favored over fluoroquinolone given potential interaction with MAC therapy. Plan PICC line tomorrow and completion of therapy at [facility] once bed available. 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 Continue azithromycin, ethambutol, and rifampin. 12/05/16 16:51 Subjective: Patient with intermittent cough. Up walking in the halls. Feels better today. Objective: Vital Signs Temp Pulse Resp BP Pulse Ox 36.7 C 68 16 110/51 L 96 12/05/16 15:36 12/05/16 15:36 12/05/16 15:36 12/05/16 15:36 12/05/16 15:36 Laboratory Results 12/04/16 05:01 12/03/16 17:40 12/04/16 12/05/16 12/06/16 05:59 05:59 05:59 Intake Total 300 Output Total 500 Balance -200 Cefepime # 2 - Physical Exam General Appearance: alert, no apparent distress EENT: pharynx normal, No thrush Respiratory: crackles (Right base) Cardiac/Chest: regular rate, rhythm Extremities: No inflammation Abdomen: non-tender, No distended ICD10 Worksheet Patient Problems: Problems Problem Status Onset Pneumonia Acute Sepsis Acute
--- NOTE | 2016-12-05 16:55 | PDIAF ---
- Diagnosis Diagnosis: Pseudomonal pneumonia, pulmonary MAC - Medication Management Discharge Medications: Medications to Continue on Transfer Aspirin [Aspirin 81mg (*)] 81 mg PO DAILY 12/03/16 [Last Taken Unknown] Azithromycin [Azithromycin] 250 mg PO DAILY 12/03/16 [Last Taken 12/03/16] Bupropion HCl [Bupropion HCl Sr] 200 mg PO DAILY 12/03/16 [Last Taken 12/03/16] Calcium [HI-ADDIE] 1,000 mg PO DAILY 12/03/16 [Last Taken Unknown] Cholecalciferol Vit D3 [Vitamin D3 (*)] 1,000 units PO DAILY 12/03/16 [Last Taken 12/03/16] Ethambutol HCl [Myambutol 400 MG (*)] 800 mg PO DAILY 12/03/16 [Last Taken 12/03] Herbals/Supplements -Info Only 1 ea PO DAILY 12/03/16 [Last Taken Unknown] Magnesium Oxide [Magnesium Oxide 400 mg (*)] 800 mg PO DAILY 12/03/16 [Last Taken Unknown] PREDNISONE [PREDNISONE] 20 mg PO DAILY 12/03/16 [Last Taken Unknown] RIFAMPIN [RIFAMPIN] 600 mg PO HS 12/03/16 [Last Taken Unknown] Timolol 0.25% [TIMOPTIC 0.25% (*)] 1 drops EACHEYE BID 12/03/16 [Last Taken ] Valacyclovir HCl [Valacyclovir] 500 mg PO BID PRN 12/03/16 [Last Taken Unknown] Vitamin B Complex [Super B-50 Complex] 1 each PO DAILY 12/03/16 [Last Taken Unknown] Mcfp Antibiotics: Cefepime 2 g IV q.12 hours Rn Call Center Antibiotic Stop Date: 12/19/16 Discharge Medications: Refer to the Discharge Home Medication list for PRN reason. PICC Care - Routine: Yes - Labs/Radiology CBC Date: 12/09/16 (Weekly Q ) CMP Date: 12/09/16 (Weekly Q ) Call or Fax Lab and Imaging Results to: Dr. Kaufman, - Follow Up Care Current Providers and Referrals: Nicole Varela MD [Primary Care Provider] - As per Instructions
--- NOTE | 2016-12-05 19:58 | HOSPPROG ---
Hospitalist Progress Note Assessment/Plan: The patient is a 81-year-old female with PMH MAC, IBS who was admitted for Pseudomonas found in sputum culture as well as worsening cough/shortness of breath. ASSESSMENT/PLAN: Acute hypoxemic respiratory failure, on O2 Pseudomonas pneumonia, possibly hospital acquired Bronchiectasis MAC Sepsis -IV cefepime -Azithro, ethambutol, rifampin for MAC -ID consulted-Dr. Henriquez -O2/SVNs -Flutter valve IBS-C -Cont outpt meds -Bowel protocol VTE prophylaxis: DC Lovenox per pt request, she is ambulating. Disposition: MedSurg, possible DC to nursing facility at [facility] on when she can get a bed, for continued IV Abx. ____ SUBJECTIVE: The patient feels okay. She feels she is breathing a little better. She admits to getting winded easily when she walks. She does not want anymore Lovenox and would rather ambulate. OBJECTIVE: Physical Exam: General: The patient is a thin, elderly who is alert and in no acute distress. HEENT: normocephalic, extraocular movements intact, conjunctivae clear. Mucous membranes moist. Neck: trachea midline, no visible masses. CV: +S1/S2, RRR, no MRG. Resp: unlabored, CTAB + rhonchi, no wheeze. Abd: soft and nondistended. Musculoskeletal: Normal muscle tone/bulk. Neuro: cranial nerves II XII grossly intact. Intact gross motor and sensory function. Psych: Appropriate mood and appropriate affect. Skin: Mild pallor. No petechiae. Heme/lymph: No peripheral edema at bilateral lower extremities. Labs/Imaging/Other Tests: Personally reviewed/interpreted. Objective: Vital Signs Temp Pulse Resp BP Pulse Ox 36.7 C 68 16 110/51 L 96 12/05/16 15:36 12/05/16 15:36 12/05/16 15:36 12/05/16 15:36 12/05/16 15:36 Laboratory Results 12/04/16 05:01 12/03/16 17:40 12/04/16 12/05/16 12/06/16 05:59 05:59 05:59 Intake Total 300 Output Total 500 Balance -200 PT 13.5 SEC (12.0-15.0) 12/03/16 17:35 INR 1.04 (0.83-1.16) 12/03/16 17:35 ICD10 Worksheet Patient Problems: Problems Problem Status Onset Pneumonia Acute Sepsis Acute
[2016-12-05] MEDS: RIFAMPIN 300 MG CAP PO SCH (20:01)
[2016-12-06] MEDS: ERYTHROMYCIN 0.5% 1 GM OPHT.OINT RTEYE SCH ×5 (01:40→21:53)
[2016-12-06] MEDS: CEFEPIME HCL 2 GM in D5W 100 ML IV SCH ×2 (05:19→19:17)
[2016-12-06] MEDS: IPRATROPIUM/ALBUTEROL 3 ML DEYVIAL IH SCH ×4 (05:47→21:46)
[2016-12-06] MEDS: SENNOSIDES/DOCUSATE SODIUM TAB PO SCH ×2 (07:53→20:15)
[2016-12-06] MEDS: TIMOLOL 0.25% 5 ML OPHT.BTL EACHEYE SCH ×2 (09:39→20:15)
[2016-12-06] MEDS: ETHAMBUTOL HCL 400 MG TAB PO SCH (09:41)
[2016-12-06] MEDS: AZITHROMYCIN 250 MG TAB PO SCH (09:41)
[2016-12-06] MEDS: ASPIRIN 81 MG CHEWABLE TAB PO SCH (10:49)
[2016-12-06] MEDS: MAGNESIUM OXIDE 400 MG TAB PO SCH (10:49)
[2016-12-06] MEDS: buPROPion SR 100 MG TAB PO SCH (10:49)
[2016-12-06] MEDS: CALCIUM CARBONATE 500 MG TAB PO SCH (10:49)
[2016-12-06] MEDS: CHOLECALCIFEROL VIT D3 1,000 UNITS TAB PO SCH (10:49)
--- NOTE | 2016-12-06 15:11 | HOSPPROG ---
Hospitalist Progress Note Assessment/Plan: Pseudomonas pneumonia, possibly hospital acquired * continue IV cefepime Bronchiectasis MAC * continue meds Sepsis * resolved acute hypoxic respiratory failure IBS-C -Cont outpt meds -Bowel protocol disposition - half-way facility tomorrow Subjective: no new complaints. Breathing is improving Objective: Vital Signs Temp Pulse Resp BP Pulse Ox 36.5 C 62 18 107/50 L 96 12/06/16 08:00 12/06/16 10:39 12/06/16 10:39 12/06/16 08:00 12/06/16 10:39 Laboratory Results 12/04/16 05:01 12/03/16 17:40 12/05/16 12/06/16 12/07/16 05:59 05:59 05:59 Intake Total 200 Balance 200 PT 13.5 SEC (12.0-15.0) 12/03/16 17:35 INR 1.04 (0.83-1.16) 12/03/16 17:35 - Physical Exam Constitutional: no apparent distress, appears nourished, not in pain Eyes: anicteric sclera, EOMI Ears, Nose, Mouth, Throat: moist mucous membranes, hearing normal, ears appear normal Cardiovascular: regular rate and rhythym, no murmur, rub, or gallop Respiratory: no respiratory distress, other ( slight scattered crackles) Gastrointestinal: normoactive bowel sounds, soft, non-tender abdomen, no palpable masses Neurologic: AAOx3 Psychiatric: interacting appropriately, not anxious, not encephalopathic, thought process linear ICD10 Worksheet Patient Problems: Problems Problem Status Onset Chronic Disease Mgmt/Transitional Care Acute Pneumonia Acute Sepsis Acute
--- NOTE | 2016-12-06 16:52 | PCMIDPN ---
Assessment/Plan: Assessment/Plan: * Pneumonia with BAL culture showing Pseudomonas: Feels improved after initiation of cefepime although persistent cough. Tolerating cefepime well. PICC line placed earlier today. Plan 2 weeks of cefepime with probable discharge tomorrow to [facility]. Patient has scheduled follow-up with Dr. Kaufman on 12/13/2016. 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 Continue azithromycin, ethambutol, and rifampin. BAL AFB cultures pending. AFB smear was negative. 12/06/16 16:50 12/06/16 16:52 Subjective: Patient feels better but still has some cough. Less short of breath and has been off oxygen this p.m.. Objective: Vital Signs Temp Pulse Resp BP Pulse Ox 37.1 C 64 18 109/65 90 L 12/06/16 15:19 12/06/16 16:38 12/06/16 16:38 12/06/16 15:19 12/06/16 16:38 Laboratory Results 12/04/16 05:01 12/03/16 17:40 12/05/16 12/06/16 12/07/16 05:59 05:59 05:59 Intake Total 200 950 Balance 200 950 Cefepime # 3 - Physical Exam General Appearance: alert, no apparent distress EENT: No scleral icterus, No thrush Respiratory: crackles (Right base which are less prominent) Cardiac/Chest: regular rate, rhythm Extremities: No inflammation Abdomen: non-tender, No distended - Line/s RUE PICC Lines: No drainage, No erythema ICD10 Worksheet Patient Problems: Problems Problem Status Onset Chronic Disease [facility]/Transitional Care Acute Pneumonia Acute Sepsis Acute
[2016-12-06] MEDS: RIFAMPIN 300 MG CAP PO SCH (20:15)
[2016-12-07 00:03] VITALS: O2SAT 96
[2016-12-07] MEDS: CEFEPIME HCL 2 GM in D5W 100 ML IV SCH (05:47)
[2016-12-07] MEDS: ERYTHROMYCIN 0.5% 1 GM OPHT.OINT RTEYE SCH ×2 (05:48→12:08)
[2016-12-07] MEDS: IPRATROPIUM/ALBUTEROL 3 ML DEYVIAL IH SCH ×2 (06:17→12:15)
[2016-12-07 07:26] VITALS: BP 115/56; PULSE 72; RESP 15; TEMP 97.8
[2016-12-07] MEDS: ASPIRIN 81 MG CHEWABLE TAB PO SCH (08:48)
[2016-12-07] MEDS: AZITHROMYCIN 250 MG TAB PO SCH (08:48)
[2016-12-07] MEDS: CHOLECALCIFEROL VIT D3 1,000 UNITS TAB PO SCH (08:49)
[2016-12-07] MEDS: SENNOSIDES/DOCUSATE SODIUM TAB PO SCH (08:49)
[2016-12-07] MEDS: ETHAMBUTOL HCL 400 MG TAB PO SCH (08:49)
[2016-12-07] MEDS: CALCIUM CARBONATE 500 MG TAB PO SCH (08:49)
[2016-12-07] MEDS: TIMOLOL 0.25% 5 ML OPHT.BTL EACHEYE SCH (08:51)
--- NOTE | 2016-12-07 11:05 | PDIAF ---
- Diagnosis Diagnosis: Pseudomonal pneumonia, pulmonary MAC - Medication Management Discharge Medications: Medications to Continue on Transfer Aspirin [Aspirin 81mg (*)] 81 mg PO DAILY 12/03/16 [Last Taken Unknown] Azithromycin 250 mg PO DAILY 12/03/16 [Last Taken 12/03/16] Bupropion HCl [Bupropion HCl Sr] 200 mg PO DAILY 12/03/16 [Last Taken 12/03/16] Calcium [HI-ADDIE] 1,000 mg PO DAILY 12/03/16 [Last Taken Unknown] Cholecalciferol Vit D3 [Vitamin D3 (*)] 1,000 units PO DAILY 12/03/16 [Last Taken 12/03/16] Ethambutol HCl [Myambutol 400 MG (*)] 800 mg PO DAILY 12/03/16 [Last Taken 12/03] Herbals/Supplements -Info Only 1 ea PO DAILY 12/03/16 [Last Taken Unknown] Magnesium Oxide [Magnesium Oxide 400 mg (*)] 800 mg PO DAILY 12/03/16 [Last Taken Unknown] RIFAMPIN 600 mg PO HS 12/03/16 [Last Taken Unknown] Timolol 0.25% [TIMOPTIC 0.25% (*)] 1 drops EACHEYE BID 12/03/16 [Last Taken ] Valacyclovir HCl [Valacyclovir] 500 mg PO BID PRN 12/03/16 [Last Taken Unknown] Vitamin B Complex [Super B-50 Complex] 1 each PO DAILY 12/03/16 [Last Taken Unknown] Cefepime HCl [Maxipime] 2 gm IV Q12H #0 vial 12/07/16 [Last Taken Unknown] [place] Antibiotics: Cefepime 2 g IV q.12 hours Correction Antibiotic Stop Date: 12/19/16 Discharge Medications: Refer to the Discharge Home Medication list for PRN reason. PICC Care - Routine: Yes - Orders Diet Recommendation: no restrictions on diet - Labs/Radiology CBC Date: 12/09/16 (Weekly Q ) CMP Date: 12/09/16 (Weekly Q ) Call or Fax Lab and Imaging Results to: Dr. Kaufman, - Follow Up Care Current Providers and Referrals: Nicole Varela MD [Primary Care Provider] - As per Instructions Kyleigh Kaufman MD [Medical Doctor] - 12/13/16
[2016-12-07] MEDS: MAGNESIUM OXIDE 400 MG TAB PO SCH (11:07)
[2016-12-07] MEDS: buPROPion SR 100 MG TAB PO SCH (11:07)
--- NOTE | 2016-12-07 11:29 | GDS ---
[f rep st] DISCHARGE SUMMARY DISCHARGE DIAGNOSES: 1. Pseudomonas pneumonia. 2. Bronchiectasis. 3. Mycobacterium avium complex. 4. Sepsis, resolved. 5. Acute hypoxic respiratory failure. 6. History of irritable bowel syndrome. HISTORY: This is an 81-year-old female with a history of MAC being followed by Pulmonology and ID, who had a sputum culture done several days ago due to increasing cough, and was found to have pseudo monas, and she was directed to be admitted. HOSPITAL COURSE: Patient was started on IV cefepime. Both ID and Pulmonology had seen the patient. She has improved with therapy. She will be discharged to [facility] inpatient rehab to [facility] te 2 weeks total of IV cefepime. /[id number]/MODL
== END 2016-12-07 13:24 | DRG 871 ==
LOC: F3N 18:25
PROVIDERS: ADMIT Hospitalist; ATTEND Hospitalist
PROC: 02HV33Z Insertion of Infusion Device into Superior Vena Cava, Percutaneous Approach (ICD-10-PCS; principal; 2016-12-06)
DX: A41.89 Other specified sepsis (principal); J15.1 Pneumonia due to Pseudomonas; A31.0 Pulmonary mycobacterial infection; J47.9 Bronchiectasis, uncomplicated; J96.01 Acute respiratory failure with hypoxia; K58.9 Irritable bowel syndrome, unspecified
CPT/HCPCS: 96365; C1751; J0692; J1650

== ENCOUNTER → 2017-03-30 | Outpatient (CLI) | payer OTHER, MEDICARE | LOC: FIMAGING 08:27 | PROVIDERS: ATTEND Internal Medicine Infectious Disease | DX: A31.0 Pulmonary mycobacterial infection (principal); Z79.2 Long term (current) use of antibiotics ==

== ENCOUNTER 2018-03-17 08:55 | Day surgery (SDC) | payer OTHER, MEDICARE ==
[2018-03-17] MEDS ORDERED: LR 1,000 ML IV ONE (09:11)
[2018-03-17] MEDS ORDERED: PROPOFOL/EMULSION 500 MG/50 ML BOTTLE IV ONE (11:57)
--- NOTE | 2018-03-17 11:57 | PDGENHP ---
History & Physical Chief Complaint: h/o colon polyps rectal pain History of Present Illness: Pt w h/o colon polpys requested colonoscopy Pertinent Past, Social, Family History: fam h/o cc in father Relevant Physical Exam: cv rrr s1s2. chest cta. abd + bs soft Cardiorespiratory Assessment: [id number]
--- NOTE | 2018-03-17 11:57 | PDANEPAE ---
ANE History of Present Illness Patient presents for screening colonoscopy ANE Past Medical History - Cardiovascular History Hx Hypertension: No Hx Arrhythmias: No Hx Chest Pain: No Hx Coronary Artery / Peripheral Vascular Disease: No Hx CHF / Valvular Disease: No Hx Palpitations: No - Pulmonary History Hx COPD: No Hx Asthma/Reactive Airway Disease: No Hx Recent Upper Respiratory Infection: No Hx Oxygen in Use at Home: Yes O2 in Use at Home (L/minute): 2.L at noc Hx Sleep Apnea: No Sleep Apnea Screening Result - Last Documented: Negative Pulmonary History Comment: current macrum bacterium pna,. bronchiectasis - Neurologic History Hx Cerebrovascular Accident: No Hx Seizures: No Hx Dementia: No - Endocrine History Hx Diabetes: No - Renal History Hx Renal Disorders: No Renal History Comment: DIFFICULTY EMPTYING BLADDER - Liver History Hx Hepatic Disorders: No - Neurological & Psychiatric Hx Hx Neurological and Psychiatric Disorders: Yes Neurological / Psychiatric History Comment: DEPRESSION - Cancer History Hx Cancer: Yes Cancer History Comment: SKIN - Congenital Disorder History Hx Congenital Disorders: No - GI History Hx Gastrointestinal Disorders: Yes Gastrointestinal History Comment: IBS - Other Health History Other Health History: GLAUCOMA - Chronic Pain History Chronic Pain: No - Surgical History Prior Surgeries: LUNG BX 1993. TMYPANOPLASTY. COCLEAR IMPLANTSx3. TONSILLECTOMY. REMVL RT CATARACT. broken ankle repair. broken little finger repair ANE Review of Systems Review of Systems: - Exercise capacity METS (RN): 4 METS ANE Patient History - Allergies Allergies/Adverse Reactions: No Known Allergies Allergy (Verified 03/03/18 12:49) - Home Medications Home Medications: Aspirin [Aspirin 81mg (*)] 81 mg PO DAILY 12/03/16 [Last Taken 1 Day Ago ~] Bupropion HCl [Bupropion HCl Sr] 200 mg PO DAILY 12/03/16 [Last Taken 1 Day Ago ~03/16/18] Calcium [HI-ADDIE] 1,000 mg PO DAILY 12/03/16 [Last Taken 1 Day Ago ~03/16/18] Cholecalciferol Vit D3 [Vitamin D3 (*)] 1,000 units PO DAILY 12/03/16 [Last Taken 1 Day Ago ~03/16/18] Ethambutol HCl [Myambutol 400 MG (*)] 1,000 mg PO DAILY 12/03/16 [Last Taken 1 Day Ago ~03/16/18] Herbals/Supplements -Info Only 1 ea PO DAILY 12/03/16 [Last Taken 1 Day Ago ~08/22] Magnesium Oxide [Magnesium Oxide 400 mg (*)] 800 mg PO DAILY 12/03/16 [Last Taken 1 Day Ago ~03/16/18] RIFAMPIN 450 mg PO HS 12/03/16 [Last Taken 1 Day Ago ~03/16/18] Timolol 0.25% [TIMOPTIC 0.25% (*)] 1 drops EACHEYE BID 12/03/16 [Last Taken 1 Day Ago ~03/16/18] Valacyclovir HCl [Valacyclovir] 500 mg PO BID PRN 12/03/16 [Last Taken 1 Day Ago ~03/16/18] Vitamin B Complex [Super B-50 Complex] 1 each PO DAILY 12/03/16 [Last Taken 1 Day Ago ~03/16/18] Azithromycin 250mg Tthsasu 12/01/17 [Last Taken 1 Day Ago ~03/16/18] Azithromycin Mwf 500mg 12/01/17 [Last Taken 1 Day Ago ~03/16/18] Tymlos Subq Daily 12/01/17 [Last Taken 1 Day Ago ~03/16/18] - NPO status NPO Status: no food or drink >8 hours NPO Since - Liquids (Date): 03/17/18 NPO Since - Liquids (Time): 06:00 NPO Since - Solids (Date): 03/16/18 - Smoking Hx Smoking Status: Never smoked - Family Anes Hx Family Hx Anesthesia Complications: none ANE Labs/Vital Signs - Vital Signs Blood Pressure: 140/69 Heart Rate: 50 Respiratory Rate: 18 O2 Sat (%): 95 Height: 162.56 cm Weight: 48.94 kg ANE Physical Exam - Airway Neck exam: decreased ROM Mallampati Score: Class 2 Mouth exam: normal dental/mouth exam - Pulmonary Pulmonary: no respiratory distress - Cardiovascular Cardiovascular: regular rate and rhythym - ASA Status ASA Status: III ANE Anesthesia Plan Anesthesia Plan: GA with mask (rba discussed)
--- NOTE | 2018-03-17 12:29 | GIREPORT ---
[facility] Surgical Services - Endoscopy Department Patient Name: Erica Castano Procedure Date: 03/17/2018 10:50 AM Patient Type: Outpatient Attending MD/ ER Physician: Malini Montes MD Procedure: Colonoscopy Indications: High risk colon cancer surveillance: Personal history of colonic polyps Providers: Malini Montes MD Medicines: Monitored Anesthesia Care Complications: No immediate complications. Description of Procedure: After obtaining informed consent, the scope was passed under direct vis ion. Throughout the procedure, the patient's blood pressure, pulse, and oxyg en saturations were monitored continuously. The Colonoscope was introduced through the anus and advanced to the terminal ileum. The colonoscopy wa s performed without difficulty. The patient tolerated the procedure well. The quality of the bowel preparation was adequate. The terminal ileum, ileo cecal valve, appendiceal orifice, and rectum were photographed. Findings: The perianal and digital rectal examinations were normal. Multiple diverticula were found in the sigmoid colon, descending colon and ascending colon. Estimated Blood Loss: Estimated blood loss: none. Post Op Diagnosis: - Diverticulosis in the sigmoid colon, in the descending colon and in t he ascending colon. - No abnormalities in the rectum seen. - No specimens collected. Recommendation: - Patient has a contact number available for emergencies. The signs and symptoms of potential delayed complications were discussed with the pat ient. Return to normal activities tomorrow. Written discharge instructions we re provided to the patient. - High fiber diet. - Continue present medications. - No repeat colonoscopy due to age. - Return to physician mechanic's assistant at appointment to be scheduled. - Discharge patient to home. - Thank you for allowing me to participate in the care of your patient. Attending Participation: I personally performed the entire procedure. Malini Montes MD Malini Montes MD 03/17/2018 12:28:51 PM This report has been signed electronicallyMalini Montes MD Number of Addenda: 0 Note Initiated On: 03/17/2018 10:50 AM Total Procedure Duration Time 0 hours 14 minutes 47 seconds [email or web address]
[2018-03-17] MEDS ORDERED: NALOXONE HCL 0.4 MG/ML INJ IVP PRN (12:32)
[2018-03-17] MEDS ORDERED: ONDANSETRON 4 MG/2 ML VIAL IVP PRN (12:32)
[2018-03-17] MEDS ORDERED: LR 500 ML IV PRN (12:32)
--- NOTE | 2018-03-17 12:33 | POSTANESTH ---
Post Anesthetic Evaluation Cardiovascular Status: Similar to Pre-Op Cond Respiratory Status: Similar to Pre-op Cond. Level of Consciousness/Mental Status: Can Participate in Eval, Mildly Sleepy, Arousable Pain Control: Adequate, Prn Tx Ordered Nausea/Vomiting Control: Adequate, Prn Tx Ordered Complications Possibly Related to Anesthesia: None Noted
[2018-03-17 13:30] VITALS: BP 143/52
== END 2018-03-17 14:04 | disposition home or self-care (01) ==
LOC: FSGY 08:55
PROVIDERS: ATTEND Internal Medicine Gastroenterology
PROC: 0DJD8ZZ Inspection of Lower Intestinal Tract, Via Natural or Artificial Opening Endoscopic (ICD-10-PCS; principal; 2018-03-17 12:00)
DX: Z12.11 Encounter for screening for malignant neoplasm of colon (principal); K57.30 Diverticulosis of large intestine without perforation or abscess without bleeding; K62.89 Other specified diseases of anus and rectum; Z86.010 Personal history of colon polyps; Z80.0 Family history of malignant neoplasm of digestive organs; Z66 Do not resuscitate
CPT/HCPCS: J2704

== ENCOUNTER 2018-12-15 09:24 | Emergency (ER) | payer OTHER, MEDICARE ==
--- NOTE | 2018-12-15 10:01 | EDPHY ---
H & P Stated Complaint: Vertigo Time Seen by Provider: 12/15/18 09:38 - Personal History Current Tetanus/Diphtheria Vaccine: Yes Tetanus Vaccine Date: 2006 - Medical/Surgical History Hx Asthma: No Hx Chronic Respiratory Disease: Yes Hx Diabetes: No Hx Cardiac Disease: No Hx Renal Disease: No Hx Cirrhosis: No Hx Alcoholism: No Hx HIV/AIDS: No Hx Splenectomy or Spleen Trauma: No Other PMH: cochlear implants, glaucoma, IBS, non-TB mycobacterium intracellular pneumonia - Social History Smoking Status: Never smoked Constitutional: Initial Vital Signs Heart Rate 47 L 12/15/18 09:29 Respiratory Rate 18 12/15/18 09:29 Blood Pressure 179/84 H 12/15/18 09:29 O2 Sat (%) 98 12/15/18 09:29 O2 Delivery Mode Room Air Allergies/Adverse Reactions: No Known Allergies Allergy (Verified 12/15/18 09:32) Home Medications: Medication Instructions Recorded Aspirin [Aspirin 81mg (*)] 81 mg PO DAILY 12/03/16 Bupropion HCl [Bupropion HCl Sr] 200 mg PO DAILY 12/03/16 Calcium [HI-ADDIE] 1,000 mg PO DAILY 12/03/16 Cholecalciferol Vit D3 [Vitamin D3 1,000 units PO DAILY 12/03/16 (*)] Ethambutol HCl [Myambutol 400 MG 1,000 mg PO DAILY 12/03/16 (*)] Herbals/Supplements -Info Only 1 ea PO DAILY 12/03/16 Magnesium Oxide [Magnesium Oxide 800 mg PO DAILY 12/03/16 400 mg (*)] RIFAMPIN 450 mg PO HS 12/03/16 Timolol 0.25% [TIMOPTIC 0.25% (*)] 1 drops EACHEYE BID 12/03/16 Valacyclovir HCl [Valacyclovir] 500 mg PO BID PRN 12/03/16 Vitamin B Complex [Super B-50 1 each PO DAILY 12/03/16 Complex] Azithromycin 250mg Tthsasu 12/01/17 Azithromycin Mwf 500mg 12/01/17 Tymlos Subq Daily 12/01/17 Meclizine HCl [Meclizine HCl 25 mg 25 mg PO QID PRN #10 tab 12/15/18 (RX,OTC)] Medical Decision Making - Diagnostics Imaging Results: Imaging Impressions Head CTA 12/15/18 09:56 Impression: 1. Mild atherosclerotic disease in bilateral carotid bulbs without flow- limiting stenosis. 2. No carotid or vertebral flow-limiting stenosis, occlusion, or dissection. 3. Cervical spondylosis as described above. 4. Bilateral lung apices demonstrate mycobacterial avium complex with increase in size of left upper lobe 3 x 2 cm solid mass, which may represent worsening MAC or bronchogenic carcinoma. Recommend follow-up nuclear medicine PET scan and pulmonary consult. Measurement of carotid stenosis is based on the residual internal carotid diameter with [place] Symptomatic Carotid Endarterectomy Trial (NASCET) based stenosis levels. CT Angiogram of the Brain Clinical Indications: Severe dizziness, different than usual. Technique: CT angiogram of the brain and neck was performed with the uneventful intravenous administration of 85 mL Isovue-370 contrast. Multiplanar reconstructions including 3D reconstructions performed and evaluated on [employer] workstation in order to better evaluate the [place] vessels. Images were manipulated by the radiologist at the computer workstation. Dose reduction techniques were utilized. Findings: Major vessels of the [place] are adequately displayed, demonstrating no evidence of flow-limiting stenosis or occlusion. Superior sagittal sinus appears patent without thrombosis. 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 origin of the left posterior cerebral artery from the left posterior communicating artery. No basilar artery aneurysm. No evidence of cerebrovascular occlusion. Impression: 1. Right MCA bifurcation 3-mm aneurysm. 2. No evidence of cerebral vascular occlusion. 3. Patent superior sagittal sinus. Findings and recommendations discussed with Emergency Department physician, Dr. Domenico Pires at 1100 hours on December 15, 2018. Final report concurs with initial preliminary interpretation. Neck CTA 12/15/18 09:56 Impression: 1. Mild atherosclerotic disease in bilateral carotid bulbs without flow- limiting stenosis. 2. No carotid or vertebral flow-limiting stenosis, occlusion, or dissection. 3. Cervical spondylosis as described above. 4. Bilateral lung apices demonstrate mycobacterial avium complex with increase in size of left upper lobe 3 x 2 cm solid mass, which may represent worsening MAC or bronchogenic carcinoma. Recommend follow-up nuclear medicine PET scan and pulmonary consult. Measurement of carotid stenosis is based on the residual internal carotid diameter with [place] Symptomatic Carotid Endarterectomy Trial (NASCET) based stenosis levels. CT Angiogram of the Brain Clinical Indications: Severe dizziness, different than usual. Technique: CT angiogram of the brain and neck was performed with the uneventful intravenous administration of 85 mL Isovue-370 contrast. Multiplanar reconstructions including 3D reconstructions performed and evaluated on [employer] workstation in order to better evaluate the [place] vessels. Images were manipulated by the radiologist at the computer workstation. Dose reduction techniques were utilized. Findings: Major vessels of the [place] are adequately displayed, demonstrating no evidence of flow-limiting stenosis or occlusion. Superior sagittal sinus appears patent without thrombosis. 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 origin of the left posterior cerebral artery from the left posterior communicating artery. No basilar artery aneurysm. No evidence of cerebrovascular occlusion. Impression: 1. Right MCA bifurcation 3-mm aneurysm. 2. No evidence of cerebral vascular occlusion. 3. Patent superior sagittal sinus. Findings and recommendations discussed with Emergency Department physician, Dr. Domenico Pires at 1100 hours on December 15, 2018. Final report concurs with initial preliminary interpretation. Head CT 12/15/18 10:11 Impression: 1. Mild atrophy. 2. No hydrocephalus, or mass effect. 3. Cerebrovascular atherosclerosis. 4. No definite acute infarct or definite acute hemorrhage. 5. Mild microvascular ischemic gliosis. 6. No fluid in the sinuses or mastoid air cells. Findings and recommendations discussed with Emergency Department physician, Domenico Pires MD, at 11:00 a.m. on 12/15/2018. Final report concurs with initial preliminary interpretation. Imaging: Discussed imaging studies w/ bilingual receptionist Radiologist, I viewed and interpreted images myself ED Course/Re-evaluation: CHIEF COMPLAINT: Vertigo HISTORY OF PRESENT ILLNESS: The patient is an 83-year-old female with a history of BPPV and nystagmus arriving at the request of her ENT PA for vertigo today. The patient developed worsening dizziness on Tuesday, which improved by Tuesday. However, for the last two days the dizziness has recurred. This dizziness is only present when she moves her head and is alleviated when she lies still. Patient has a history of BPPV and positional nystagmus, however the nystagmus is now only when she turns her head to the left. Due to the change in symptoms she was advised that the emergency department. ENT would like the patient to have a CTA of her head and neck as well as a brain MRI to evaluate for a CVA. She denies taking any medications for her symptoms. No fever, headache, body aches, chest pain, heart palpitations, shortness of breath, cough, abdominal pain, urinary or bowel complaints, numbness, paresthesias. REVIEW OF SYSTEMS: A 10 point review of systems was performed and is negative with the exception of the elements mentioned in the history of present illness. PHYSICAL EXAM: HR, BP, O2 Sat, RR. Temp noted General Appearance: Alert, well hydrated, appropriate, and non-toxic appearing. Head: Atraumatic without scalp tenderness or obvious injury Eyes: Pupils equal, round, reactive to light and accommodation, EOMI, no trauma , no injection. Ears: Clear bilaterally, no perforation, normal landmarks Nose: Atraumatic, no rhinorrhea, clear. Throat: There is no erythema or exudates, no lesions, normal tonsils, mucus membranes moist. Neck: Supple, 2+ carotid upstroke, nontender, no lymphadenopathy. Respiratory: No retractions, no distress, no wheezes, and no accessory muscle use. Lungs are clear to auscultation bilaterally. Cardiovascular: Regular rate and rhythm, no murmurs, rubs, or gallops. Bilateral carotid, radial, dorsalis pedis, and posterior tibial pulses intact. Good capillary refill all extremities. Gastrointestinal: Abdomen is soft, nontender, non-distended, no masses, no rebound, no guarding, no peritoneal signs. Musculoskeletal: Normal active ROM of all extremities, atraumatic. Neurological: Alert, appropriate, and interactive. The patient has normal DTRs and non-focal cranial nerves, motor, sensory, and cerebellar exam. Skin: No rashes, good turgor, no nodules on palpation. Past medical history: cochlear implants, glaucoma, IBS, non-TB mycobacterium intracellular pneumonia Past surgical history: Denies Family history: Denies Social history: Retired, lives in [place], does not abuse drugs or alcohol DIAGNOSTICS/PROCEDURES/CRITICAL CARE TIME: Head CT: No acute findings. Head CTA: No acute findings. 3mm right cerebral artery aneurysm. Neck CTA: No acute findings. There is a lung mass. DIFFERENTIAL DIAGNOSIS: The differential diagnosis for the patient's dizziness included but was not limited to peripheral and central causes of vertigo, orthostatic causes including dehydration, cardiogenic and neurogenic causes, and blood loss. MEDICAL DECISION MAKING: The patient is an 83-year-old female with a history of BPPV and nystagmus arriving at the request of her ENT PA for vertigo today. Patient has a history of BPPV and positional nystagmus, however today the nystagmus is now only when she turns her head to the left. Due to the change in symptoms she was advised that the emergency department. ENT would like the patient to have a CTA of her head and neck as well as a brain MRI to evaluate for a CVA. Patient cannot have an MRI as she has cochlear implants. Head CT, Head CTA, and Neck CTA ordered; 25mg PO Meclizine administered. 1100: I spoke with Dr. Plascencia, radiologist, regarding patient's imaging which are normal for any acute processes. 1124: I spoke with Dr. Plascencia, who reports there is a 3mm right cerebral artery aneurysm as well as a lung mass seen on the neck CTA. 1129: Reassessed patient, she is feeling much better after medication. I have prescribed her Meclizine for Vertigo. I have also discussed imaging findings and advised her to follow up with her green lumber grader for the incidental lung mass finding. Return precautions provided; patient is comfortable with this plan. 1139: I consulted with Shameka Pierre, PAC, regarding patient. She will see this patient in the office now for [place] maneuvers. - Data Points Laboratory Results: 12/15/18 10:04 POC Hgb 13.9 gm/dL gm/dL (12.6-16.3) POC Hct 41 % % (38-47) POC Sodium 144 mEq/L mEq/L (135-145) POC Potassium 3.5 mEq/L mEq/L (3.3-5.0) POC Chloride 100 mEq/L mEq/L (97-110) POC Total CO2 27 mEq/L mEq/L (22-31) POC BUN 19 mg/dL mg/dL (7-23) POC Creatinine 1.0 mg/dL mg/dL (0.6-1.0) POC Glucose 126 mg/dL H mg/dL (70-100) Medications Given: Discontinued Medications Meclizine HCl (Meclizine Hcl) 25 mg PO EDNOW ONE Stop: 12/15/18 10:41 Last Admin: 12/15/18 10:53 Dose: 25 mg Point of Care Test Results: Chemistry 12/15/18 10:04 POC Sodium 144 mEq/L mEq/L (135-145) POC Potassium 3.5 mEq/L mEq/L (3.3-5.0) POC Chloride 100 mEq/L mEq/L (97-110) POC Total CO2 27 mEq/L mEq/L (22-31) POC BUN 19 mg/dL mg/dL (7-23) POC Creatinine 1.0 mg/dL mg/dL (0.6-1.0) POC Glucose 126 mg/dL H mg/dL (70-100) ISTAT H&H 12/15/18 10:04 POC Hgb 13.9 gm/dL gm/dL (12.6-16.3) POC Hct 41 % % (38-47) Departure - Departure Disposition: Home, Routine, Self-Care Clinical Impression: BPPV (benign paroxysmal positional vertigo) Qualifiers: Laterality: left Qualified Code(s): H81.12 - Benign paroxysmal vertigo, left ear Condition: Good Instructions: Benign Paroxysmal Positional Vertigo (ED) Additional Instructions: 1. Go directly to ENT for vertigo 2. Follow up with your green lumber grader for the incidental finding of a lung mass. 3. Use meclizine as prescribed. 4. Drink plenty of fluids. 5. Return to the emergency department immediately for headache, numbness, weakness, severe vertigo, neck pain, inability to tolerate fluids by mouth or other worsening of condition. 6. If symptoms persist for more than 48 hours, followup with your primary care physician and/or a neurologist for further evaluation. Referrals: Gabby,Shameka, PAC [Physician Application Services Manager] - As per Instructions Pauline Pereira MD [Primary Care Provider] - As per Instructions Hever Angeles MD [Medical Doctor] - As per Instructions Prescriptions: Meclizine HCl [Meclizine HCl 25 mg (RX,OTC)] 25 mg PO QID PRN #10 tab PRN Reason: Dizziness Report Scribed for: Domenico Pires Report Scribed by: Radha Dawson Date of Report: 12/15/18 Time of Report: 11:30
[2018-12-15] MEDS ORDERED: IOPAMIDOL (ISOVUE 370) 100 ML BTL IV ONE (10:11)
[2018-12-15] MEDS ORDERED: MECLIZINE HCL 25 MG TAB PO ONE (10:40)
[2018-12-15 11:49] VITALS: BP 172/87
== END 2018-12-15 12:02 | disposition home or self-care (01) ==
DX: H81.12 Benign paroxysmal vertigo, left ear (principal)
CPT/HCPCS: 70450; 70496; 70498; 99285; Q9967; 82435-PO; 82565-PO; 82947-PO; 84132-PO; 84295-PO; 84520-PO; 85014-ER

== ENCOUNTER → 2019-01-30 | Outpatient (CLI) | payer OTHER, MEDICARE | LOC: FIMAGING 15:46 | PROVIDERS: ATTEND Internal Medicine | DX: R05 Cough (principal); J47.9 Bronchiectasis, uncomplicated ==

== ENCOUNTER 2019-02-03 13:21 | Inpatient (IN) | payer OTHER, MEDICARE ==
--- NOTE | 2019-02-03 13:44 | EDPHY ---
H & P Stated Complaint: bronchitis x3 week on abx, cough Time Seen by Provider: 02/03/19 13:42 - Personal History Current Tetanus/Diphtheria Vaccine: Unsure Current Tetanus Diphtheria and Acellular Pertussis (TDAP): Unsure Tetanus Vaccine Date: 2006 - Medical/Surgical History Hx Asthma: No Hx Chronic Respiratory Disease: Yes Hx Diabetes: No Hx Cardiac Disease: No Hx Renal Disease: No Hx Cirrhosis: No Hx Alcoholism: No Hx HIV/AIDS: No Hx Splenectomy or Spleen Trauma: No Other PMH: cochlear implants, glaucoma, IBS, non-TB mycobacterium intracellular pneumonia - Social History Smoking Status: Never smoked Constitutional: Initial Vital Signs Temperature (C) 37.2 C 02/03/19 13:30 Heart Rate 79 02/03/19 13:30 Respiratory Rate 16 02/03/19 13:30 Blood Pressure 112/68 02/03/19 13:30 O2 Sat (%) 97 02/03/19 13:30 O2 Delivery Mode Nasal Cannula O2 (L/minute) 1 Allergies/Adverse Reactions: No Known Allergies Allergy (Verified 02/03/19 13:35) Home Medications: Medication Instructions Recorded Aspirin [Aspirin 81mg (*)] 81 mg PO DAILY 12/03/16 Bupropion HCl [Bupropion HCl Sr] 200 mg PO DAILY 12/03/16 Calcium [HI-ADDIE] 1,000 mg PO DAILY 12/03/16 Cholecalciferol Vit D3 [Vitamin D3 1,000 units PO DAILY 12/03/16 (*)] Ethambutol HCl [Myambutol 400 MG 1,000 mg PO DAILY 12/03/16 (*)] Herbals/Supplements -Info Only 1 ea PO DAILY 12/03/16 Magnesium Oxide [Magnesium Oxide 800 mg PO DAILY 12/03/16 400 mg (*)] RIFAMPIN 450 mg PO HS 12/03/16 Timolol 0.25% [TIMOPTIC 0.25% (*)] 1 drops EACHEYE BID 12/03/16 Valacyclovir HCl [Valacyclovir] 500 mg PO BID PRN 12/03/16 Vitamin B Complex [Super B-50 1 each PO DAILY 12/03/16 Complex] Azithromycin 250mg Tthsasu 12/01/17 Azithromycin Mwf 500mg 12/01/17 Tymlos Subq Daily 12/01/17 Meclizine HCl [Meclizine HCl 25 mg 25 mg PO QID PRN #10 tab 12/15/18 (RX,OTC)] Medical Decision Making - Diagnostics Imaging Results: Imaging Impressions Chest X-Ray 02/03/19 13:44 Impression: 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 Imaging: I viewed and interpreted images myself ED Course/Re-evaluation: CHIEF COMPLAINT: Cough, low O2Sats HISTORY OF PRESENT ILLNESS: The patient is an 83 y/o female with a history of non-TB mycobacterium intracellular pneumonia and recent bronchitis complaining of a cough and shortness of breath. Around 3 weeks ago she was diagnosed with bronchitis and placed on an antibiotic. However, her symptoms are not improving. For the last several days she noticed that her O2Sats were decreasing. Today the O2Sats were in the mid 80's. No fever, headache, body aches, lightheadedness, chest pain, heart palpitations, abdominal pain, urinary or bowel complaints, numbness, paresthesias. REVIEW OF SYSTEMS: A comprehensive 10 system review of systems is otherwise negative aside from elements mentioned in the history of present illness and medical decision making. PHYSICAL EXAM: HR, BP, O2 Sat, RR. Temp noted General Appearance: O2Sats in the 80's on room air. Alert, well hydrated, appropriate, and non-toxic appearing. Head: Atraumatic without scalp tenderness or obvious injury Eyes: Pupils equal, round, reactive to light and accommodation, EOMI, no trauma , no injection. Ears: Clear bilaterally, no perforation, normal landmarks Nose: Atraumatic, no rhinorrhea, clear. Throat: There is no erythema or exudates, no lesions, normal tonsils, mucus membranes moist. Neck: Supple, 2+ carotid upstroke, nontender, no lymphadenopathy. Respiratory: Not moving air in the left base. No retractions, no distress, no wheezes, and no accessory muscle use. Cardiovascular: Regular rate and rhythm, no murmurs, rubs, or gallops. Bilateral carotid, radial, dorsalis pedis, and posterior tibial pulses intact. Good capillary refill all extremities. Gastrointestinal: Abdomen is soft, nontender, non-distended, no masses, no rebound, no guarding, no peritoneal signs. Musculoskeletal: Normal active ROM of all extremities, atraumatic. Neurological: Alert, appropriate, and interactive. The patient has normal DTRs and non-focal cranial nerves, motor, sensory, and cerebellar exam. Skin: No rashes, good turgor, no nodules on palpation. 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 DIFFERENTIAL DIAGNOSIS: The differential diagnosis for the patient's shortness of breath and hypoxemia included but was not limited to pneumonia, myocardial infarction, acute mountain sickness, high altitude pulmonary edema, congestive heart failure, and pulmonary embolus. MEDICAL DECISION MAKING: The patient is an 83 y/o female with a history of non-TB mycobacterium intracellular pneumonia and recent bronchitis presenting with a cough and shortness of breath after starting antibiotics for bronchitis 3 weeks ago. Today the O2Sats were in the mid 80's, but improved to 95% when she was placed on 1L supplemental oxygen. On exam she is not moving air in her left base; I suspect she has a pneumonia. She is not tachycardic or febrile; she does not meet sepsis criteria. Labs and chest x-ray ordered; 1gm IV Ertapenem and DuoNeb administered. I also discussed plan for admission which she is comfortable with. 1423: I consulted with the hospitalist service, Dr. Middleton accepts admission of this patient for hypoxemia and pneumonia. - Data Points Laboratory Results: Laboratory Results 02/03/19 14:00 02/03/19 14:00 02/03/19 02/03/19 02/03/19 14:00 14:00 14:00 WBC 12.58 10^3/uL H 10^3/uL (3.80-9.50) RBC 4.12 10^6/uL L 10^6/uL (4.18-5.33) Hgb 13.2 g/dL g/dL (12.6-16.3) Hct 37.8 % L % (38.0-47.0) MCV 91.7 fL fL (81.5-99.8) MCH 32.0 pg pg (27.9-34.1) MCHC 34.9 g/dL g/dL (32.4-36.7) RDW 13.7 % % (11.5-15.2) Plt Count 291 10^3/uL 10^3/uL (150-400) MPV 10.4 fL fL (8.7-11.7) Neut % (Auto) 74.6 % H % (39.3-74.2) Lymph % (Auto) 8.5 % L % (15.0-45.0) [place]ner % (Auto) 12.1 % % (4.5-13.0) Eos % (Auto) 3.3 % % (0.6-7.6) Baso % (Auto) 0.9 % % (0.3-1.7) Nucleat RBC Rel Count 0.0 % % (0.0-0.2) Absolute Neuts (auto) 9.38 10^3/uL H 10^3/uL (1.70-6.50) Absolute Lymphs (auto) 1.07 10^3/uL 10^3/uL (1.00-3.00) Absolute Monos (auto) 1.52 10^3/uL H 10^3/uL (0.30-0.80) Absolute Eos (auto) 0.42 10^3/uL H 10^3/uL (0.03-0.40) Absolute Basos (auto) 0.11 10^3/uL H 10^3/uL (0.02-0.10) Absolute Nucleated RBC 0.00 10^3/uL 10^3/uL (0-0.01) Immature Gran % 0.6 % % (0.0-1.1) Immature Gran # 0.08 10^3/uL 10^3/uL (0.00-0.10) RBC/WBC/PLT Morphology TNP Platelet Estimate TNP PT 14.0 SEC SEC (12.0-15.0) INR 1.12 (0.83-1.16) APTT 33.7 SEC SEC (23.0-38.0) VBG Lactic Acid Sodium 134 mEq/L L mEq/L (135-145) Potassium 4.7 mEq/L mEq/L (3.5-5.2) Chloride 97 mEq/L mEq/L (97-110) Carbon Dioxide 29 mEq/l mEq/l (22-31) Anion Gap 8 mEq/L mEq/L (6-14) BUN 16 mg/dL mg/dL (7-23) Creatinine 0.8 mg/dL mg/dL (0.6-1.0) Estimated GFR > 60 Glucose 85 mg/dL mg/dL (70-100) Calcium 9.0 mg/dL mg/dL (8.5-10.4) Total Bilirubin 0.4 mg/dL mg/dL (0.1-1.4) 02/03/19 14:00 WBC RBC Hgb Hct MCV MCH MCHC RDW Plt Count MPV Neut % (Auto) Lymph % (Auto) [place] % (Auto) Eos % (Auto) Baso % (Auto) Nucleat RBC Rel Count Absolute Neuts (auto) Absolute Lymphs (auto) Absolute Monos (auto) Absolute Eos (auto) Absolute Basos (auto) Absolute Nucleated RBC Immature Gran % Immature Gran # RBC/WBC/PLT Morphology Platelet Estimate PT INR APTT VBG Lactic Acid 0.7 mmol/L mmol/L (0.7-2.1) Sodium Potassium Chloride Carbon Dioxide Anion Gap BUN Creatinine Estimated GFR Glucose Calcium Total Bilirubin Medications Given: Discontinued Medications Albuterol/Ipratropium (Duoneb) 3 ml IH EDNOW ONE Stop: 02/03/19 13:49 Last Admin: 02/03/19 13:48 Dose: 3 ml Ertapenem 1 gm/ Sodium (Chloride) 100 mls @ 200 mls/hr IV EDNOW ONE PRN Reason: Protocol Stop: 02/03/19 14:19 Last Admin: 02/03/19 14:32 Dose: 100 mls Departure - Departure Disposition: [facility] Inpatient Acute Clinical Impression: Hypoxemia Pneumonia Qualifiers: Pneumonia type: due to unspecified organism Laterality: left Lung location: lower lobe of lung Qualified Code(s): J18.1 - Lobar pneumonia, unspecified organism Condition: Fair Referrals: Pauline Pereira MD [Primary Care Provider] - As per Instructions
[2019-02-03] MEDS ORDERED: IPRATROPIUM/ALBUTEROL 3 ML DEYVIAL ONE (13:46)
[2019-02-03] MEDS ORDERED: IPRATROPIUM/ALBUTEROL 3 ML DEYVIAL IH ONE (13:48)
[2019-02-03] MEDS ORDERED: ERTAPENEM 1 GM in NS 100 ML IV ONE (13:50)
[2019-02-03 14:16] LABS: PLATELET COUNT 291 10^3/uL (150-400)
[2019-02-03 14:24] LABS: INR 1.12 (0.83-1.16)
[2019-02-03] MEDS ORDERED: ONDANSETRON 4 MG/2 ML VIAL IVP PRN (15:15)
[2019-02-03] MEDS ORDERED: oxyCODONE IR 5 MG TAB PO PRN (15:15)
[2019-02-03] MEDS ORDERED: ACETAMINOPHEN 325 MG TAB PO PRN (15:15)
[2019-02-03] MEDS ORDERED: LORazepam 2 MG/ML INJ IVP PRN (15:15)
[2019-02-03] MEDS ORDERED: ONDANSETRON DISINTEGRATING 4 MG TAB PO PRN (15:15)
--- NOTE | 2019-02-03 15:23 | PDGENHP ---
History and Physical - Chief Complaint cough, shortness of breath - History of Present Illness 83yo F with chronic bronchiectasis, MAC infection who presents with 2-3 weeks of worsening productive cough and shortness of breath. Her sputum has been biege in color. She noticed her pulse oximeter was reading between 80-88% on room air at home. She typically only uses supplemental oxygen at night. She denies fevers, chills, nausea, vomiting, diarrhea, chest pain, pleuritic pain, leg swelling, orthopnea. Non-smoker. Lives independently at [facility]. No recent travel. Saw PCP on 01/30 due to symptoms. CXR at that time showed new left perihilar opacities and left apical pleural-parenchymal consolidation. She was prescribed levofloxacin and has taken 4 doses but was not getting better so presented to the ED today. CXR is mostly unchanged from 4 days ago. She was requiring 2L of supplemental O2 to maintain saturations >90%. Otherwise, she has been feeling well. She is being admitted for further evaluation and management. Case discussed with ED physician Domenico Pires. 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 She was on azithromycin, rifampin, ethambutol, and amikacin. She has done well since that time. Additionally, she does have a history of Pseudomonal lung infection in 2017. History Information - Allergies/Home Medication List Allergies/Adverse Reactions: No Known Allergies Allergy (Verified 02/03/19 13:35) Home Medications: Aspirin [Aspirin 81mg (*)] 81 mg PO DAILY 12/03/16 [Last Taken 1 Day Ago ~] Bupropion HCl [Bupropion HCl Sr] 200 mg PO DAILY 12/03/16 [Last Taken 1 Day Ago ~03/16/18] Calcium [HI-ADDIE] 1,000 mg PO DAILY 12/03/16 [Last Taken 1 Day Ago ~03/16/18] Cholecalciferol Vit D3 [Vitamin D3 (*)] 1,000 units PO DAILY 12/03/16 [Last Taken 1 Day Ago ~03/16/18] Ethambutol HCl [Myambutol 400 MG (*)] 1,000 mg PO DAILY 12/03/16 [Last Taken 1 Day Ago ~03/16/18] Herbals/Supplements -Info Only 1 ea PO DAILY 12/03/16 [Last Taken 1 Day Ago ~08/22] Magnesium Oxide [Magnesium Oxide 400 mg (*)] 800 mg PO DAILY 12/03/16 [Last Taken 1 Day Ago ~03/16/18] RIFAMPIN 450 mg PO HS 12/03/16 [Last Taken 1 Day Ago ~03/16/18] Timolol 0.25% [TIMOPTIC 0.25% (*)] 1 drops EACHEYE BID 12/03/16 [Last Taken 1 Day Ago ~03/16/18] Valacyclovir HCl [Valacyclovir] 500 mg PO BID PRN 12/03/16 [Last Taken 1 Day Ago ~03/16/18] Vitamin B Complex [Super B-50 Complex] 1 each PO DAILY 12/03/16 [Last Taken 1 Day Ago ~03/16/18] Azithromycin 250mg Tthsasu 12/01/17 [Last Taken 1 Day Ago ~03/16/18] Azithromycin Mwf 500mg 12/01/17 [Last Taken 1 Day Ago ~03/16/18] Tymlos Subq Daily 12/01/17 [Last Taken 1 Day Ago ~03/16/18] I have personally reviewed and updated: family history, medical history, social history, surgical history - Past Medical History Additional medical history: chronic bronchiectasis, 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 Review of Systems Review of Systems: ROS: 10pt was reviewed & negative except for what was stated in HPI & below Physical Exam Physical Exam: Temp Pulse Resp BP Pulse Ox 37.0 C 83 20 110/80 93 02/03/19 14:53 02/03/19 14:53 02/03/19 14:53 02/03/19 14:53 02/03/19 14:53 O2 (L/minute) 1 Constitutional: no apparent distress, appears nourished, not in pain Eyes: PERRL, anicteric sclera, EOMI Ears, Nose, Mouth, Throat: moist mucous membranes, hearing normal, ears appear normal, no oral mucosal ulcers, other (no thrush) Cardiovascular: regular rate and rhythym, no murmur, rub, or gallop, No edema Respiratory: reduced air movement, rhonchi, No expiratory wheeze, No inspiratory crackles Gastrointestinal: normoactive bowel sounds, soft, non-tender abdomen, no palpable masses Genitourinary: no bladder fullness, no bladder tenderness Skin: warm, normal color, no rashes or abrasions, no fluctuance, no induration, No mottled Musculoskeletal: full muscle strength, no muscle tenderness, normal joint ROM, no joint effusions Neurologic: AAOx3 Psychiatric: interacting appropriately, not anxious, not encephalopathic, thought process linear Lab Data & Imaging Review 02/03/19 14:00 02/03/19 14:00 WBC 12.58 10^3/uL (3.80-9.50) H 02/03/19 14:00 RBC 4.12 10^6/uL (4.18-5.33) L 02/03/19 14:00 Hgb 13.2 g/dL (12.6-16.3) 02/03/19 14:00 Hct 37.8 % (38.0-47.0) L 02/03/19 14:00 MCV 91.7 fL (81.5-99.8) 02/03/19 14:00 MCH 32.0 pg (27.9-34.1) 02/03/19 14:00 MCHC 34.9 g/dL (32.4-36.7) 02/03/19 14:00 RDW 13.7 % (11.5-15.2) 02/03/19 14:00 Plt Count 291 10^3/uL (150-400) 02/03/19 14:00 MPV 10.4 fL (8.7-11.7) 02/03/19 14:00 Neut % (Auto) 74.6 % (39.3-74.2) H 02/03/19 14:00 Lymph % (Auto) 8.5 % (15.0-45.0) L 02/03/19 14:00 [place] % (Auto) 12.1 % (4.5-13.0) 02/03/19 14:00 Eos % (Auto) 3.3 % (0.6-7.6) 02/03/19 14:00 Baso % (Auto) 0.9 % (0.3-1.7) 02/03/19 14:00 Nucleat RBC Rel Count 0.0 % (0.0-0.2) 02/03/19 14:00 Absolute Neuts (auto) 9.38 10^3/uL (1.70-6.50) H 02/03/19 14:00 Absolute Lymphs (auto) 1.07 10^3/uL (1.00-3.00) 02/03/19 14:00 Absolute Monos (auto) 1.52 10^3/uL (0.30-0.80) H 02/03/19 14:00 Absolute Eos (auto) 0.42 10^3/uL (0.03-0.40) H 02/03/19 14:00 Absolute Basos (auto) 0.11 10^3/uL (0.02-0.10) H 02/03/19 14:00 Absolute Nucleated RBC 0.00 10^3/uL (0-0.01) 02/03/19 14:00 Immature Gran % 0.6 % (0.0-1.1) 02/03/19 14:00 Immature Gran # 0.08 10^3/uL (0.00-0.10) 02/03/19 14:00 RBC/WBC/PLT Morphology TNP 02/03/19 14:00 Platelet Estimate TNP 02/03/19 14:00 PT 14.0 SEC (12.0-15.0) 02/03/19 14:00 INR 1.12 (0.83-1.16) 02/03/19 14:00 APTT 33.7 SEC (23.0-38.0) 02/03/19 14:00 VBG Lactic Acid 0.7 mmol/L (0.7-2.1) 02/03/19 14:00 Sodium 134 mEq/L (135-145) L 02/03/19 14:00 Potassium 4.7 mEq/L (3.5-5.2) 02/03/19 14:00 Chloride 97 mEq/L (97-110) 02/03/19 14:00 Carbon Dioxide 29 mEq/l (22-31) 02/03/19 14:00 Anion Gap 8 mEq/L (6-14) 02/03/19 14:00 BUN 16 mg/dL (7-23) 02/03/19 14:00 Creatinine 0.8 mg/dL (0.6-1.0) 02/03/19 14:00 Estimated GFR > 60 02/03/19 14:00 Glucose 85 mg/dL (70-100) 02/03/19 14:00 Calcium 9.0 mg/dL (8.5-10.4) 02/03/19 14:00 Total Bilirubin 0.4 mg/dL (0.1-1.4) 02/03/19 14:00 Interpretation: CXR: chronic bilateral interstitial thickening, chronic bronchiectasis, stable left perihilar alveolar opacifications since 4 days ago, no pleural effusion, heart size normal (reviewed/interp by me) Assessment & Plan Assessment: 83yo F with chronic bronchiectasis, MAC infection who presents with 2-3 weeks of worsening productive cough and shortness of breath. Plan: 1. Acute hypoxemic respiratory insufficiency: New left perihilar and upper lobe opacities on CXR in setting of infectious symptoms (productive cough). She has underlying chronic bronchiectasis with a history of pulmonary MAC and Pseudomonal pneumonia. Low concern for PE. - CT chest without contrast to help clarify acute processes in lung parenchyma - s/p ertapenem in ED - ID consulted, appreciate topographical field assistant with antibiotic selection - Sputum culture, blood cultures - Continue supplemental O2 to keep sats>90% - Would consider pulmonary consultation tomorrow for consideration of bronchoscopy/BAL depending on CT results - Anai PRN 2. Chronic bronchiectasis - Pulmonary hygiene. Will provide flutter valve. Consider hypertonic saline, vest. 3. H/o pulmonary MAC: s/p prolonged course of rifampin, azithro, ethambutol, amikacin. 4. IBS-C: Continue outpatient medications, bowel regimen. 5. Hearing impairment s/p cochlear implants 6. GERD: Continue PPI VTE ppx: LMWH Code: DNR/DNI. She has a MOST and confirmed this with me. Her MOST states "If I cannot put on and adjust my sound processors so I can hear, please let me ." Dispo: admit as inpatient
--- NOTE | 2019-02-03 15:48 | PDCONSULT ---
Binder Fixer Note: Infectious Diseases Consult Note Impression: 83-year-old woman with a left upper lobe nodular mass in the location that is likely related to a previous cavity noted as a consequence of pulmonary MAC infection. Patient was told by her outpatient cake icer at [facility] that this area had "healed" and is unlikely that this would have been communicated had the lesion been this size. 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 She has only been off her MAC therapy for approximately 2 months making it possible that this is simply a recurrence of MAC. As we continue to evaluate because we will treat possible lung abscess pathogens with typical bacteria pending further testing. 1. Left upper lobe nodular lung disease 2. Diffuse bilateral nodular lung disease 3. Severe bronchiectasis 4. History of pulmonary MAC, diagnosed 2014 5. Mild, acute eosinophilia Plan: 1. Start Augmentin 875/125 twice daily to start on 02/04 2. Testing order for IgE levels and antibodies to Aspergillus 3. Pulmonology consult to evaluate for bronchoscopy with/without biopsy 4. Reviewed in detail potential side effects of beta-lactam antibiotics to include: allergy, rash, nausea, antibiotic-associated diarrhea, Clostridioides difficile colitis. Hever Polo MD Infectious Diseases Chief Complaint: Cough and decreased oxygen saturation with home monitor Requesting Provider: Dr. Middleton Reason for Referral: Consultation was requested by Dr. Middleton regarding antimicrobial management. HPI: 83-year-old woman who presented to the emergency department approximately 4 days after starting oral levofloxacin therapy prescribed for increased cough from urgent care provider. She notes approximately 2 weeks of general illness with decreased appetite, weight loss, increasing cough that became productive of sputum over the past 4-5 days, and a general feeling of being unwell with nausea. She notes no fever or chills but she has developed non drenching night sweats over the past week which is new for her. She was seen in [facility] on 01/30/2019 with approximately 1-2 weeks of new onset productive cough without noted fevers or chills. She was started on oral levofloxacin 750 mg p.o. Daily which started on 01/31 which she had taken as prescribed for a total of 4 days including the date of admission. She completed approximately 18 months of therapy directed towards mycobacterium avium-intracellulare starting August of 2015 through April of 2016; treatment was initially 3 times weekly which was increased to daily in April of [address] scan findings and she was treated through April of 2017. She is noted to have a chest CT scan in June 2017 which showed a cavity in the left upper lobe, it was noted that that was a new finding. A bronchoscopy in August 2017 revealed positive findings for mycobacterium avium- intracellulare. She restarted 3 drug oral therapy for pulmonary MAC infection in early November 2017, it was also noted that therapeutic drug monitoring revealed subtherapeutic levels of azithromycin as well as ethambutol with therapeutic levels of rifampin. Intravenous amikacin was added in mid November [address] scan. She completed a total of 8 weeks of IV amikacin with follow-up CT imaging noted to show improvement in the cavitary lesion. After stopping IV amikacin she did start inhaled amikacin in January 2018 which she completed approximately 3 additional [address] of therapy. CT scan report from January 2018 reveals a left upper lobe cavity 2.3 cm x 1.8 cm x 2.6 cm that was slightly decreased in size from a comparison image obtained in November 2017. Patient was verbally told by her outpatient cake icer at [facility] that the left upper lobe cavity had "healed". Reviewed patient medical records in [facility], [facility] Information Organization ([facility]), and [place] Immunization Information System (CIIS). Past Medical/Surgical History: Pulmonary MAC infection initially diagnosed in 2014; numerous bronchoscopy procedures Social History: Does not use tobacco products; Does not consume marijuana products; Drinks alcohol socially; Does not use any other drugs currently or in the past Family History: No family members with recurrent infections Allergies: No known antibiotic allergies Medications: Reviewed in medical record. ROS: 10 organ systems reviewed; pertinent positives and negatives listed in the HPI, all other organ systems negative. Physical Exam: VS: Reviewed Gen: No acute distress; Breathing comfortably with supplemental oxygen via nasal cannula; Able to speak in complete sentences Eyes: No conjunctival injection; No scleral icterus HENT: No gross deformities Neck: No limitation in range of motion Pulm: Audible inspiratory sounds to the bases bilaterally; scattered coarse rales, no wheeze CV: Normal S1 and S2; Regular rate and rhythm; No murmurs, rubs, or gallops; No lower extremity edema Abd: Not distended; Normo-active bowel sounds; Soft; Non-tender Skin: A full skin exam including exposed bilateral upper extremities, bilateral lower extremities to the knees, face, neck, abdomen, chest, and back performed; Skin intact, warm, with no rash MSK: Joints without erythema or edema; No gross limitation in range of motion Ext: No clubbing or cyanosis Neuro: Awake and alert Psych: Normal mood and affect Labs/Imaging: All microbiology testing (culture and non-culture) reviewed in the medical record. Personally reviewed and interpreted the images of the following radiographs: Chest CT from today showing marked bronchiectatic lung disease, scattered nodular lung disease with some lesions having surrounding ground-glass opacities , dense ground-glass opacities in the left upper lobe, a large left upper lobe dense nodule. Most recent comparison chest CT available for viewing is from March 2017 which showed diffuse bronchiectatic lung disease with no left upper lobe nodules. Discussed treatment/diagnostic testing and testing results with admitting provider(s). Ongoing monitoring for antimicrobial toxicity with: CBC, BMP, interval historical information, and interval physical exam. [id number] time with patient: 67 minutes with >50% of [id number] time spent in counseling, patient education, and coordinating care. Counseling provided included the microbiology of ABPA, Aspergilloma, lung abscess, lung cancer, recurrence of pulmonary MAC, expected time to resolution, natural history without treatment, and side effects of treatment.
[2019-02-03] MEDS ORDERED: IPRATROPIUM/ALBUTEROL 3 ML DEYVIAL IH PRN (16:49)
[2019-02-03] MEDS ORDERED: BISACODYL 10 MG SUPP PR PRN (17:35)
[2019-02-03] MEDS ORDERED: MAGNESIUM HYDROXIDE 30 ML UDCUP PO PRN (17:35)
[2019-02-03] MEDS ORDERED: SENNOSIDES/DOCUSATE SODIUM TAB PO PRN (17:35)
--- NOTE | 2019-02-03 18:00 | ASMTCMCOM ---
CM Note CM Note Notes: Pt presented to the Emergency Department with a cough/non TB MAC infection x 3 wks. History includes glaucoma, IBS, diverticulitis, GERD, osteoporosis, urinary retention, hearing impairment w/ cochlear implants, chronic 02 dependence and non TB MAC pneumonia. Pt is and lives independently at [facility]. Pt admitted for further observation and treatment. Discharge needs remain unclear at this time. Anticipate pt will likely return to [facility] when medically stable. CM will continue to follow for any potential needs. Discharge Plan: TBD, likely [facility] Date Signed: 02/03/2019 05:58 PM Electronically Signed By:Binta Jason RN
[2019-02-03] MEDS: POLYETHYLENE GLYCOL 3350 17 GM PKT PO PRN (18:41)
[2019-02-03] MEDS ORDERED: FLUOCINOLONE ACETONIDE OIL EACHEAR PRN (21:01)
[2019-02-03] MEDS ORDERED: [UNRECOGNIZED DRUG - OTHER] PO PRN (21:01)
[2019-02-03] MEDS ORDERED: HYOSCY PO PRN (21:01)
[2019-02-03] MEDS ORDERED: SOD PHOS PO PRN (21:01)
[2019-02-03] MEDS: LATANOPROST 0.005% 2.5 ML OPHT DROPS EACHEYE SCH (22:27)
[2019-02-04 04:32] LABS: PLATELET COUNT 273 10^3/uL (150-400)
[2019-02-04] MEDS: LEVOTHYROXINE 25 MCG TAB PO SCH (05:22)
[2019-02-04] MEDS ORDERED: ADDERALL 10 MG TAB PO PRN (09:00)
[2019-02-04] MEDS ORDERED: AMOXICILLIN/CLAVULANATE POT 875/125 MG TAB PO SCH (09:00)
[2019-02-04] MEDS: ENOXAPARIN 40 MG/0.4 ML SYR SC SCH (09:00)
[2019-02-04] MEDS ORDERED: TIMOLOL 0.25% 5 ML OPHT.BTL EACHEYE SCH (09:00)
[2019-02-04] MEDS: buPROPion XL 150 MG TAB PO SCH (09:01)
[2019-02-04] MEDS: SERTRALINE HCL 50 MG TAB PO SCH (09:01)
[2019-02-04] MEDS: MAGNESIUM OXIDE 400 MG TAB PO SCH (09:01)
[2019-02-04] MEDS: ABALOPARATIDE 80 MCG SQ SCH (09:05)
--- NOTE | 2019-02-04 10:40 | PCMIDPN ---
Assessment/Plan: Assessment: 83-year-old woman with rhino virus/enterovirus upper respiratory tract infection with pneumonitis. Reviewed in detail chest CT imaging in neck CT image from December that included the lung apices with pulmonology. The left upper lobe lung mass appears chronic and stable; calcifications suggest sequela of chronic MAC infection for which she is undergoing treatment on 2 occasions. No indication to treat for bacterial pathogens will continue supportive care and monitor for any signs of bacterial superinfection. 1. Acute hypoxia requiring supplemental oxygen; new oxygen requirement 2. Rhino virus/enterovirus pneumonitis, acute 3. Rhinovirus/enterovirus upper respiratory tract infection, acute 4. Left upper lobe nodular lung disease, chronic and stable 5. Mild, acute eosinophilia; stable 6. Severe bronchiectasis 7. History of pulmonary MAC, diagnosed 2014; completed treatment on 2 occasions with most recent cessation November 2018 Plan: 1. Stop Augmentin 2. Continue supportive care for viral pneumonitis 3. Will follow IgE levels and Aspergillus antibody levels 4. Advised patient she should schedule follow-up with her stereo map plotter operator at [facility], Dr. Cardona 5. Will follow sputum culture and update outpatient stereo map plotter operator if MAC grows Hever Polo MD Infectious Diseases 02/04/19 10:36 Subjective: No fever or chills overnight. Overall she feels her breathing is comfortable at rest with supplemental oxygen. Cough remains productive of sputum. Viral respiratory panel returned positive for rhinovirus/enterovirus. Objective: Vital Signs Temp Pulse Resp BP Pulse Ox 36.3 C 72 40 H 119/72 90 L 02/04/19 07:49 02/04/19 07:49 02/04/19 07:49 02/04/19 07:49 02/04/19 07:49 Microbiology 02/03/19 16:35 Respiratory Panel (PCR) - Final Nasal, Sinus - Other Human Rhinovirus/Enterovirus Laboratory Results 02/04/19 04:00 02/04/19 04:00 02/03/19 02/04/19 02/05/19 05:59 05:59 05:59 Intake Total 150 Balance 150 Ongoing monitoring for antimicrobial toxicity with: CBC, BMP, interval historical information, and interval physical exam. Discussed treatment/diagnostic testing and testing results with admitting provider(s). Personally reviewed interval laboratory results. Personally reviewed the images and interpreted the following radiographs: CT chest from the date of admission and CT neck that included the lung apices from December; reviewed images in person with stereo map plotter operator. - Physical Exam General Appearance: no apparent distress, non-toxic EENT: No scleral icterus Respiratory: No respiratory distress, No accessory muscle use Neck: full range of motion, supple Extremities: No swelling, No erythema Skin: No rash Neuro/Psych: alert, normal mood/affect, oriented x 3, No confused ICD10 Worksheet Patient Problems: Problems Problem Status Onset Hypoxemia Acute Pneumonia Acute Chronic Disease Mgmt/Transitional Care Acute Sepsis Acute
--- NOTE | 2019-02-04 11:04 | PDCONSULT ---
Quality Control Clerk Note: ASSESSMENT 83 year old female with bronchiectasis, recurrent cavitary MAC admitted with acute on chronic hypoxemic respiratory failure due to RSV pneumonitis. Also with underlying granulomatous nodule # left upper lobe irregular nodule/mass with calcification. I suspect this is a granulomatous process given calcifications and prior healed DEL cavitary lesion. Relative stability between December (seen on CTA neck and now. Differential diagnosis includes malignancy, hamartoma, lung abscess. # abnormal CT chest. new patchy ground-glass opacifications. Given positive RSV on respiratory viral PCR I suspect this is viral related pneumonitis. # pulmonary MAC. Has been treated with 218 month course of antibiotics. Followed at [facility]. # bronchiectasis. Due to above. Continues with airway hygiene # acute on chronic hypoxemic respiratory failure. Due to RSV pneumonitis # RSV pneumonitis PLAN # given interval stability of DEL mass/nodule over 2 months [address] neck and CT chest combined with intralesional calcifications I suspect this is a granuloma and less likely represents malignancy. I would defer biopsy and/or bronchoscopy given age, condition and stability and follow-up with repeat scan in 3-6 months. # please help the patient obtain CD copies of images to take to her primary agricultural extension educator at [facility] # Airway hygiene with hypertonic saline, vest, flutter valve # agree with short course of Augmentin although now that she has diagnosed RSV may consider stopping antibiotics altogether # supplemental oxygen as needed for respiratory failure Thank you IMAGING Personally reviewed interpreted radiographic images as well as formal radiology reads. I also reviewed the imaging with Dr. Polo of Infectious Disease 02/03/2019 CT CHEST - interval development of scattered ground-glass opacifications in left upper lobe, anterior right middle lobe and right lower lobe. Significant bronchiectasis, apical predominant pleural parenchymal scarring with 2 x 3 cm irregular mass/nodule with calcifications and irregular borders LABS Reviewed Viral respiratory PCR positive for rhino virus Aspergillus IgG pending Consult I was asked by Dr. Guaman in [facility] Medicine sections disease to evaluate this patient for pulmonary mass and respiratory failure HPI Favio is a very pleasant 83-year-old male are who has a longstanding history of pulmonary MAC and has received multiple prolonged complicated treatment regimens at [facility]. She presented to the emergency department was admitted after failing outpatient oral antibiotics. She is reports 2 weeks of malaise, decreased appetite, increased cough with sputum production and general malaise. She denies fevers and chills but does report sweats at night. She is initially treated in with level Floxin. She is initially found to be hypoxemic at home. Regarding her in NTM, she initially began treatment based on progressive symptoms and CT findings in 2014 and has underwent multiple prolonged treatment regimens since then. Effusion in addition to typical medications for MAC she has also been on IV amikacin as well as inhaled amikacin. Per report she had a left upper lobe cavitary lesions that decreased in size and was told verbally that it healed. n his completed 2 separate 18 month courses of antibiotics at [facility]. Her 1st treatment is initiated 2014. Her last treatment ended April of 2017. She has had multiple bronchoscopies and other surgeries. No hemoptysis, chest pain, syncope, and diarrhea Allergies No known drug allergies Past medical history Pulmonary MAC Social history No tobacco no marijuana intermittent alcohol use. No regular drug use, lives in [facility] Family history No family history with MAC Medications A complete medication reconciliation was performed. See EMR for full details Review of systems A comprehensive 10 point review of systems was obtained is negative except as per HPI Physical exam Afebrile, heart rate 72, blood pressure 119/72, respiratory rate 16 93% on room air In GEN: Thin, resting in bed nasal cannula to be in place NEURO: A&Ox3, CN 2-12 GI, appropriate fluency, normal snf recall HEENT: PERRL, EOMI, MMM, OP clear NECK: supple, trachea midline CHEST normal shape, no pes excavatum CVS: rrr no m/r/g, no JVD appreciated PULM: Coarse breath sounds. No wheezing. ABD: soft, NT, ND, NABS EXT: no swelling, no cyanosis, full ROM SKIN: warm, dry, intact, no rash PSYCH CAM negative, appropriate affect
--- NOTE | 2019-02-04 11:38 | PDMN ---
Medical Necessity Medical necessity: [facility] [place] [facility] Pulmonary Disease: 83 yo w/ c/o worsening cough and SOB in setting of recent infection requiring PO antibx as outpt w/ no improvement. Eval reveals acute hypoxemic respiratory insufficiency: New left perihilar and upper lobe opacities on CXR in setting of infectious symptoms. ID and pulmonary consults. Initially OBS but meets [facility] [place] IP criteria for hypoxemia w/ new O2 needs and intermittent tachypnea w/ RR 30s-40s. Change to IP status 02/03/19@2345 per MD order. 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
--- NOTE | 2019-02-04 12:00 | HOSPPROG ---
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 - outpt pulm f/u IBS-C: stable, continue outpatient medications, bowel regimen. Hearing impairment s/p cochlear implants GERD: Continue PPI VTE ppx: LMWH Code: DNR/DNI. Dispo: admit as inpatient, PT/OT evals today, possibly home with [facility] vs SNF pending therapy recs Subjective: Pt is hoarse, coughing, increased sputum production. No fevers/ chills. Feels weak, not comfortable going home, asking about rehab vs home care. No CP or SOB at rest. Appetite fair. Objective: Vital Signs Temp Pulse Resp BP Pulse Ox 36.3 C 72 40 H 119/72 90 L 02/04/19 07:49 02/04/19 07:49 02/04/19 07:49 02/04/19 07:49 02/04/19 07:49 Laboratory Results 02/04/19 04:00 02/04/19 04:00 02/03/19 02/04/19 02/05/19 05:59 05:59 05:59 Intake Total 150 Balance 150 PT 14.0 SEC (12.0-15.0) 02/03/19 14:00 INR 1.12 (0.83-1.16) 02/03/19 14:00 - Physical Exam Constitutional: no apparent distress Eyes: PERRL Ears, Nose, Mouth, Throat: moist mucous membranes Cardiovascular: regular rate and rhythym Respiratory: no respiratory distress, clear to auscultation Gastrointestinal: normoactive bowel sounds, soft, non-tender abdomen Skin: warm Musculoskeletal: full muscle strength Neurologic: AAOx3 Psychiatric: interacting appropriately ICD10 Worksheet Patient Problems: Problems Problem Status Onset Hypoxemia Acute Pneumonia Acute Chronic Disease Mgmt/Transitional Care Acute Sepsis Acute
[2019-02-04] MEDS ORDERED: GUAIFENESIN/DM 10 ML UDCUP PO PRN (12:01)
[2019-02-04] MEDS ORDERED: ALBUTEROL 3 ML DEYVIAL IH PRN (12:01)
--- NOTE | 2019-02-04 13:54 | ASMTCMCOM ---
CM Note CM Note Notes: Pt admitted through ED yesterday with cough. Stated that she has had bronchitis for 3 weeks but the antibiotics weren't helping. CM met with pt in her room today. She lives in Independent Living at [facility] [phone]. PT recommends that she return to [facility] with homecare. Pt agrees to this or to SNF. CM attempted to determine if [facility] has their own homecare group that visits the [place] residents, but the necessary office was closed today (Tuesday). Will try again tomorrow at above phone #. Pt has been dependent on oxygen while hospitalized. At home, she normally only uses it at night. CM will continue to follow. MARIANA D/C plan: TBD (homecare vs SNF - [facility]) Date Signed: 02/04/2019 01:54 PM Electronically Signed By:Sue Gonzales
[2019-02-04] MEDS: guaiFENesin 600 MG TAB.ER PO SCH ×2 (15:18→20:03)
[2019-02-04] MEDS: IPRATROPIUM 0.03% NASAL SPRAY EACHNARE SCH ×2 (15:29→20:14)
[2019-02-04] MEDS: IPRATROPIUM/ALBUTEROL 3 ML DEYVIAL IH SCH ×2 (16:03→20:33)
[2019-02-04] MEDS: POLYETHYLENE GLYCOL 3350 17 GM PKT PO PRN (20:03)
[2019-02-04] MEDS: LATANOPROST 0.005% 2.5 ML OPHT DROPS EACHEYE SCH (20:03)
[2019-02-04] MEDS: TIMOLOL 0.25% 5 ML OPHT.BTL EACHEYE SCH (21:03)
[2019-02-05 05:28] LABS: PLATELET COUNT 288 10^3/uL (150-400)
[2019-02-05] MEDS: LEVOTHYROXINE 25 MCG TAB PO SCH (05:40)
[2019-02-05] MEDS: IPRATROPIUM/ALBUTEROL 3 ML DEYVIAL IH SCH ×4 (05:46→19:38)
[2019-02-05] MEDS: ENOXAPARIN 40 MG/0.4 ML SYR SC SCH (08:40)
[2019-02-05] MEDS: guaiFENesin 600 MG TAB.ER PO SCH ×2 (08:40→21:50)
[2019-02-05] MEDS: MAGNESIUM OXIDE 400 MG TAB PO SCH (08:40)
[2019-02-05] MEDS: SERTRALINE HCL 50 MG TAB PO SCH (08:40)
[2019-02-05] MEDS: buPROPion XL 150 MG TAB PO SCH (08:40)
[2019-02-05] MEDS: TIMOLOL 0.25% 5 ML OPHT.BTL EACHEYE SCH ×2 (08:41→21:50)
[2019-02-05] MEDS: ABALOPARATIDE 80 MCG SQ SCH (10:00)
--- NOTE | 2019-02-05 10:03 | PCMIDPN ---
Assessment/Plan: Assessment: 83-year-old woman with rhino virus/enterovirus upper respiratory tract infection with pneumonitis. She continues to improve consistent with resolving viral infection that likely progressed to lower respiratory tract involvement. She has persistent mild eosinophilia in the setting of chronic lung disease that could suggest allergic bronchopulmonary aspergillosis. Will follow IgE levels and Aspergillus antibody levels and informed patient of results and ensure her outpatient high pressure operator receives these results as well, particularly if this is suggestive of ABPA. 1. Acute hypoxia requiring supplemental oxygen; new oxygen requirement; improved 2. Rhino virus/enterovirus pneumonitis, acute; improved 3. Rhinovirus/enterovirus upper respiratory tract infection, acute 4. Left upper lobe nodular lung disease, chronic and stable 5. Mild, acute eosinophilia; stable 6. Severe bronchiectasis 7. History of pulmonary MAC, diagnosed 2014; completed treatment on 2 occasions with most recent cessation November 2018 Plan: 1. Continue supportive care for viral pneumonitis 2. Will follow IgE levels and Aspergillus antibody levels and contact patient and her outpatient high pressure operator with the results particularly if this suggests ABPA 3. Advised patient she should schedule follow-up with her high pressure operator at [facility], Dr. Cardona 4. ID will sign off; Please call with any further concerns Hever Polo MD Infectious Diseases 02/05/19 10:01 Subjective: No fever or chills. Overall her breathing feels more comfortable with decreasing cough. Objective: Vital Signs Temp Pulse Resp BP Pulse Ox 36.3 C 80 23 H 118/81 H 92 02/05/19 08:44 02/05/19 08:44 02/05/19 08:44 02/05/19 08:44 02/05/19 08:44 Laboratory Results 02/05/19 04:14 02/04/19 04:00 02/04/19 02/05/19 02/06/19 05:59 05:59 05:59 Intake Total 150 600 Balance 150 600 - Physical Exam General Appearance: no apparent distress, non-toxic EENT: No scleral icterus Respiratory: other (Breathing comfortably with supplemental oxygen at 1 liter/ minute), No respiratory distress, No accessory muscle use Neck: full range of motion, supple Skin: No rash Neuro/Psych: alert, normal mood/affect, oriented x 3, No confused ICD10 Worksheet Patient Problems: Problems Problem Status Onset Hypoxemia Acute Pneumonia Acute Chronic Disease Mgmt/Transitional Care Acute Sepsis Acute
[2019-02-05] MEDS: IPRATROPIUM 0.03% NASAL SPRAY EACHNARE SCH ×2 (12:37→22:44)
--- NOTE | 2019-02-05 19:13 | HOSPPROG ---
Hospitalist Progress Note Assessment/Plan: DIAGNOSES: * Acute on Chronic Hypoxemic Respiratory Failure * COPD exacerbation * Acute viral resp infection * Eosinophilia, acute mild, ? etiology, labs going back 2 years with no prior evidence of this * chronic bronchiectasis, with Hx of MAC and pseudomonas infections * IBS-C stable * Hearing impairment, chronic with implants PLANS: * continue bronchodilator treatments, pulm hygiene * increase activity as able * if symptoms persist would consider trial of steroid with the eosinophilia * potentially home in am seen today on hospitalist rounds was well as multidisciplinary rounds SUBJECTIVE: feeling overall better still w significant increase in cough, not at baseline dyspnea OBJECTIVE Vitals reviewed: stable without fever Exam: alert oriented skin warm dry color ok resps not labored lungs clear BSs heart regular abd soft nondistended nontender, bowel sounds present limbs warm, no edema iv site ok Lab data: wbc remains elevated at 12K+, with elevation of both PMNs and Eosinophils (500+) Objective: Vital Signs Temp Pulse Resp BP Pulse Ox 36.3 C 71 18 118/81 H 92 02/05/19 08:44 02/05/19 15:46 02/05/19 15:46 02/05/19 09:35 02/05/19 15:46 Laboratory Results 02/05/19 04:14 02/04/19 04:00 02/04/19 02/05/19 02/06/19 06:59 06:59 06:59 Intake Total 150 600 200 Output Total 600 Balance 150 600 -400 PT 14.0 SEC (12.0-15.0) 02/03/19 14:00 INR 1.12 (0.83-1.16) 02/03/19 14:00 ICD10 Worksheet Patient Problems: Problems Problem Status Onset Hypoxemia Acute Pneumonia Acute Chronic Disease [facility]/Transitional Care Acute Sepsis Acute
[2019-02-05] MEDS: LATANOPROST 0.005% 2.5 ML OPHT DROPS EACHEYE SCH (21:51)
[2019-02-06] MEDS: IPRATROPIUM/ALBUTEROL 3 ML DEYVIAL IH SCH ×2 (05:24→11:44)
[2019-02-06] MEDS: LEVOTHYROXINE 25 MCG TAB PO SCH (05:44)
[2019-02-06] MEDS: TIMOLOL 0.25% 5 ML OPHT.BTL EACHEYE SCH (07:31)
[2019-02-06] MEDS: ABALOPARATIDE 80 MCG SQ SCH (08:42)
[2019-02-06] MEDS: guaiFENesin 600 MG TAB.ER PO SCH (08:43)
[2019-02-06] MEDS: MAGNESIUM OXIDE 400 MG TAB PO SCH (08:43)
[2019-02-06] MEDS: SERTRALINE HCL 50 MG TAB PO SCH (08:44)
[2019-02-06] MEDS: ENOXAPARIN 40 MG/0.4 ML SYR SC SCH (08:44)
[2019-02-06] MEDS: buPROPion XL 150 MG TAB PO SCH (08:44)
--- NOTE | 2019-02-06 09:37 | PDDCSUM ---
Discharge Summary Discharge Summary: DISCHARGE DIAGNOSES: * Acute hypoxemic respiratory failure with chronic hypoxemic respiratory failure * Acute viral respiratory illness with rhino virus * COPD exacerbation * Eosinophilia uncertain etiology * ? Weight loss patient's estimate at 35 lb over 3+ years - 5 lb weight loss documented since November 2016 by our scales here * History of bronchiectasis with prior history of MAC and Pseudomonas * Chronic hearing impairment with implants * Chronic irritable bowel syndrome with constipation, stable STUDIES: CT scan of chest showing chronic bronchiectasis and mucous plugging with evidence of MAC, some increased mucus plugging since last study of 2017; they are some areas of ground-glass opacity in left upper lobe right middle lobe HOSPITAL COURSE SUMMARY: This patient presented to the hospital with ongoing cough and shortness of breath, increased hypoxemia compared to her baseline. At this time she is found to have evidence of a rhino virus infection. There is no definite evidence of acute bacterial infection. She does have a lower for have bronchiectasis with chronic mucus plugging, significant airways disease, and some ground-glass opacities on CT scan. There is a prior history of MAC and Pseudomonas infections. The patient was admitted the hospital and treated with conservative measures including oxygen, bronchodilators, pulmonary hygiene measures. She has improved significantly with these but still needing oxygen at 2 L nasal cannula at rest. There been no fevers or sepsis, and she is ambulating in the hallways well. There was some mild eosinophilia, this has not been seen in the previous 2 years here. In addition to the above the patient mentioned that she felt she was losing weight. Overall she felt that she had lost approximately 35 lb over period of 3 -4 years. She did mention that she thought she had been gaining weight however in the period of time leading up to this hospital admission. By our scales here she has approximately 5 lb less than she was in November of 2016. She does have a mildly decreased lean muscle mass on examination. Here she was not having a great appetite with her acute illness but was taking Ensure without difficulty. PENDING TEST RESULTS: None MEDICATION CHANGES: Addition of albuterol bronchodilator Portable home oxygen concentrator for day use will be added to her nocturnal oxygen FOLLOW-UP PLAN: The patient will be discharged from hospital to custodial facility where she is expected to have a short stay. With Dr. Pauline Pereira in 1-2 weeks Greater than 35 minutes bedside and care coordination time today
--- NOTE | 2019-02-06 09:44 | PDIAF ---
- Diagnosis Diagnosis: rhinovirus, copd exacerbation Code Status: Do Not Resuscitate - Medication Management Discharge Medications: electronically signed and located in the Home Medication List. - Orders Services needed: Registered Nurse, Certified Supervisor Tank Storage, Master Cabinet Professional , Physical Therapy, Occupational Therapy Isolation Type: None Diet Recommendation: no restrictions on diet Diet Texture: Regular Texture Diet (Nutritional supplements in the way of Ensure or similar should be used to supplement meals) - Follow Up Care Current Providers and Referrals: Pauline Pereira MD [Primary Care Provider] - As per Instructions
--- NOTE | 2019-02-06 09:47 | PDHOMEO2F ---
Home Oxygen Face to Face Home Orders: I certify that a physician or a nurse practitioner or physician's vet assistant has had a [id number] encounter with this patient on the date of this order due to the diagnosis listed, which relates to the primary reason the patient requires home oxygen. Alternative treatments have been tried, or considered, and deemed ineffective. It is anticipated that supplemental oxygen will result in improvement with treatment. Home oxygen qualifying diagnosis: copd Home oxygen secondary diagnosis: bronchiectasis SpO2 on room air (%): 85 Frequency of home oxygen needed: continuous Home oxygen liters per minute: 2 Home oxygen delivery device: nasal cannula Concentrator: Yes E-tanks for mobility and back up: No If ordering portable O2, is the patient mobile in the home?: Yes I certify that, based on these findings, the home oxygen is medically necessary for this patient for the following length of time. Length of time home oxygen needed: 99 years (pt will need portable concentrator for mobility in community)
--- NOTE | 2019-02-06 10:30 | PDHOMEO2F ---
Home Oxygen Face to Face Home Orders: I certify that a physician or a nurse practitioner or physician's psychologist research assistant has had a [id number] encounter with this patient on the date of this order due to the diagnosis listed, which relates to the primary reason the patient requires home oxygen. Alternative treatments have been tried, or considered, and deemed ineffective. It is anticipated that supplemental oxygen will result in improvement with treatment. Home oxygen qualifying diagnosis: copd Home oxygen secondary diagnosis: bronchiectasis SpO2 on room air (%): 85 Frequency of home oxygen needed: continuous Home oxygen liters per minute: 2 Home oxygen delivery device: nasal cannula Concentrator: Yes E-tanks for mobility and back up: Yes If ordering portable O2, is the patient mobile in the home?: Yes I certify that, based on these findings, the home oxygen is medically necessary for this patient for the following length of time. Length of time home oxygen needed: 99 years
[2019-02-06 12:55] VITALS: BP 129/65
--- NOTE | 2019-02-06 13:40 | ASMTDCNOTE ---
Case Management Discharge Discharge Order Complete? Answers: Yes Patient to Obtain Answers: Other Notes: [facility] Medications Transportation Arranged Answers: Other Notes: [facility] will Pick (Date 02/06/2019 12:00 AM & Time) Case Management Transport Answers: Yes Notes: face sheet for [employer] Form Complete Faxed Final Orders Answers: Yes Notes: [facility] Agency/Facility Transfer Answers: Yes Notes: [facility] Report Printed & Faxed to Receiving Agency Discharge Comments Notes: Patient is discharging today to [facility] rehab. She is a resident at [facility] and can return to her independent living apartment when she completes the rehab program. Transport was set up with [employer] for today at 2:00 (14:00). Face sheet left for transport company. Patient will go wheelchair with 2L O2. Patient's O2 equipment will be delivered directly to [facility]. Discharge summaries were Allscripted to [facility]. Nurse to nurse complete. No further needs. Date Signed: 02/06/2019 01:39 PM Electronically Signed By:Stefanie Matos LCSW
--- NOTE | 2019-02-06 13:43 | ASDISCHSUM ---
Discharge Information Plan Status:SNF Medically Cleared to Leave:02/06/2019 Discharge Date:02/06/2019 CM D/C Disposition:Longterm Facility ADT D/C Disposition:Longterm Facility Projected Discharge Date:02/06/2019 11:00 AM Transportation at D/C:Wheelchair Van Discharge Delay Reason: Follow-Up Date:02/06/2019 11:00 AM Discharge Slot:2 - 12:01 pm - 18:00 pm Final Diagnosis:Rhinovirus, copd exacerbation Placement Information Referral Type:*Senior Living/SNF Referral ID:[facility]-[id number] Provider Name:[facility] Address 1:[address] Phone Number: Address 2: Fax Number: [facility]:[place] Selection Factors: State:[place] Patient Contact Information Contact Name:DAMIAN Relationship:Friend Address: City:[place] Alternate Phone: [facility]/Zip Code:[place] Email: Financial Information Financial Class:Medicare Primary Plan Desc:MEDICARE INPATIENT Primary Plan Number:[id number] Secondary Plan Desc:[employer]ARP/MDR SUPPLEMENT Secondary Plan Number:[id number] Assessment Information [facility] CM Progress Note CM Note CM Note Notes: Pt presented to the Emergency Department with a cough/non TB MAC infection x 3 wks. History includes glaucoma, IBS, diverticulitis, GERD, osteoporosis, urinary retention, hearing impairment w/ cochlear implants, chronic 02 dependence and non TB MAC pneumonia. Pt is and lives independently at [facility]. Pt admitted for further observation and treatment. Discharge needs remain unclear at this time. Anticipate pt will likely return to [facility] when medically stable. CM will continue to follow for any potential needs. Discharge Plan: TBD, likely [facility] Date Signed: 02/03/2019 05:58 PM Electronically Signed By:Binta Jason RN [facility] Progress Note CM Note MARIANA Note Notes: Pt admitted through ED yesterday with cough. Stated that she has had bronchitis for 3 weeks but the antibiotics weren't helping. CM met with pt in her room today. She lives in Independent Living at [facility] [phone]. PT recommends that she return to [facility] with homecare. Pt agrees to this or to SNF. CM attempted to determine if [facility] has their own homecare group that visits the [place] residents, but the necessary office was closed today (Tuesday). Will try again tomorrow at above phone #. Pt has been dependent on oxygen while hospitalized. At home, she normally only uses it at night. CM will continue to follow. MARIANA D/C plan: TBD (homecare vs SNF - [facility]) Date Signed: 02/04/2019 01:54 PM Electronically Signed By:Sue Gonzales Case Management Discharge Plan Note Case Management Discharge Discharge Order Complete? Answers: Yes Patient to Obtain Answers: Other Notes: [facility] Medications Transportation Arranged Answers: Other Notes: [facility] will Pick (Date 02/06/2019 12:00 AM & Time) Case Management Transport Answers: Yes Notes: face sheet for [facility] Form Complete Faxed Final Orders Answers: Yes Notes: [facility] Agency/Facility Transfer Answers: Yes Notes: [facility] Report Printed & Faxed to Receiving Agency Discharge Comments Notes: Patient is discharging today to [facility] SNF rehab. She is a resident at [facility] and can return to her independent living apartment when she completes the rehab program. Transport was set up with [employer] for today at 2:00 (14:00). Face sheet left for transport company. Patient will go wheelchair with 2L O2. Patient's O2 equipment will be delivered directly to [facility]. Discharge summaries were Allscripted to [facility]. Nurse to nurse complete. No further needs. Date Signed: 02/06/2019 01:39 PM Electronically Signed By:Stefanie Matos LCSW Intervention Information Intervention Type:*IM-Signed Date of Service:02/06/2019 09:19 AM Patient Type:Inpatient Staff Member:Romina Nixon Hours: Discipline: Severity: Comment:
== END 2019-02-06 14:24 | DRG 189 ==
LOC: F1N 15:28 → OBSVTOIN 23:45
PROVIDERS: ADMIT Internal Medicine; ATTEND Internal Medicine
DX: J96.21 Acute and chronic respiratory failure with hypoxia (principal); J44.1 Chronic obstructive pulmonary disease with (acute) exacerbation; J06.9 Acute upper respiratory infection, unspecified; B97.89 Other viral agents as the cause of diseases classified elsewhere; D72.1 Eosinophilia; H91.8X9 Other specified hearing loss, unspecified ear; K58.1 Irritable bowel syndrome with constipation; R63.4 Abnormal weight loss; Z66 Do not resuscitate; Z99.81 Dependence on supplemental oxygen
CPT/HCPCS: 82785-90; 86606-90; 96365; 97116-GP; 97161-GP; 97165-GO; J1335; J1650